=== PATIENT | male | born 1980 | race Caucasian/White ===

== ENCOUNTER 2020-06-21 18:20 | Emergency (ER) | payer OTHER, SELFPAY ==
--- NOTE | 2020-06-21 18:27 | DI.RAD.S_ITS ---
PROCEDURE: XR CHEST 1V INDICATIONS: cough and SOB TECHNIQUE: One view of the chest was acquired. COMPARISON: None. FINDINGS: Surgical changes and devices: None. Lungs and pleura: Lungs are clear. Suspect small calcified granulomas in right lung base. No pleural effusions or pneumothorax. Mediastinum: Mediastinal contours appear normal. Heart size is normal. Bones and chest wall: No suspicious bony lesions. Overlying soft tissues appear unremarkable. IMPRESSION: No acute cardiopulmonary disease. Dictated by: Marybel Sheridan M.D. on 06/21/2020 at 19:26 Approved by: Marybel Sheridan M.D. on 06/21/2020 at 19:26
[2020-06-21 18:48] VITALS: BP 130/82; PULSE 78; RESP 16; TEMP 36.9; O2SAT 97; BMI 29.3
[2020-06-21 19:01] LABS: COVID19 -Nasal RAPID Negative (Negative)
--- NOTE | 2020-06-21 19:20 | ED.GENADULT ---
HPI - General Adult General Chief complaint: Upper Respiratory Symptoms Stated complaint: covid sx, cough/nauseas/body ache/chest pain Time Seen by Provider: 06/21/20 18:25 Source: patient Mode of arrival: Ambulatory Limitations: no limitations History of Present Illness HPI narrative: Patient is a 39-year-old male who 2 weeks ago had a family members positive for strep throat. He states that for the past 24-36 hours he has had a cough and nausea and body aches and a sore throat and chest discomfort. Has not tried anything for symptoms prior to arrival. No other sick contacts except for the family member with strep throat. No rashes. Related Data Previous Rx's Medication Instructions Recorded penicillin V potassium 500 mg PO BID 10 Days #19 tab 06/21/20 Review of Systems Constitutional Constitutional: Reports body ache(s), Reports fatigue and Denies fever(s) ENT Ears, Nose, Mouth, and Throat: Reports sore throat Cardiovascular Cardiovascular: Reports chest pain Respiratory Respiratory: Reports cough Integumentary/Breasts Skin/Breast: Denies lesions and Denies rash Neurologic Neurologic: Denies behavioral changes Psychiatric Psychiatric: Denies behavioral changes Endocrine Endocrine: Reports fatigue Hematologic/Lymphatic Hematologic/Lymphatic: Denies easy bleeding and Denies easy bruising Allergic/Immunologic Allergic/Immunologic: Denies urticaria Patient History Medical History Healthy adult Social History Smoking Status: Former smoker Smoking Status: Former smoker alcohol intake frequency: 0-2 drinks per day Substance Use Type: does not use Exam Initial Vital Signs Initial Vital Signs: Vital Signs Temperature 98.5 F 06/21/20 18:48 Pulse Rate 78 06/21/20 18:48 Respiratory Rate 16 06/21/20 18:48 Blood Pressure 130/82 06/21/20 18:48 Pulse Oximetry 97 06/21/20 18:48 Const General: cooperative, comfortable and well developed Limitations: mental status not altered HENMT Head: normal to inspection and normocephalic Ears: TM's normal bilaterally Nose: external nose normal Mouth: oral mucosae normal Throat: posterior oropharynx normal Resp Effort & Inspection: normal respiratory effort Skin Lesions: no lesions Rashes: no rashes Extrem General: normal to inspection Psych Appearance: grossly normal and well kempt Course Orders Ordered: ED Orders 06/21/20 18:27 XR chest 1V Stat 06/21/20 18:35 COVID19 Stat Discontinued Medications Penicillin V Potassium (Penicillin Vk 250 Mg Tablet) 500 mg PO NOW ONE Stop: 06/21/20 19:21 Last Admin: 06/21/20 19:24 Dose: 500 mg Documented by: Vital Signs Vital signs: Vital Signs - 8 hr 06/21/20 18:48 Temperature 98.5 F Pulse Rate 78 Respiratory Rate 16 Blood Pressure 130/82 Pulse Oximetry 97 Medical Decision Making Lab Data Lab results reviewed: Yes I reviewed the patient's lab results. Labs: Lab Results 06/21/20 Range/Units 18:35 SARS-CoV-2 (PCR) Negative (Negative) Point of Care Testing Rapid Strep A Positive Point of care testing: Point of Care Testing Rapid Strep A Positive Imaging Data Chest x-ray: Radiologist's Impression: [address] [id number] ReportSigned Patient: Hernesto Rosales FMR#: [id number]: 1980Acct:[id number]/Sex: 39 / MDate of Service: 06/21/20Loc: EDAccession Number: [id number] Procedure: XR chest 1V Ordering Provider: Judd Villa D.O. PROCEDURE: XR CHEST 1V INDICATIONS: cough and SOB TECHNIQUE: One view of the chest was acquired. COMPARISON: None. FINDINGS: Surgical changes and devices: None. Lungs and pleura: Lungs are clear. Suspect small calcified granulomas in right lung base. No pleural effusions or pneumothorax. Mediastinum: Mediastinal contours appear normal. Heart size is normal. Bones and chest wall: No suspicious bony lesions. Overlying soft tissues appear unremarkable. IMPRESSION: No acute cardiopulmonary disease. Dictated by: Marybel Sheridan M.D. on 06/21/2020 at 19:26 Approved by: Marybel Sheridan M.D. on 06/21/2020 at 19:26 [facility] Narrative Medical decision making narrative: No respiratory distress, COVID negative, chest x-ray is unremarkable, does have a positive rapid strep. Discussed this with the patient. Offered IM antibiotics versus oral antibiotics. Patient opted for the oral antibiotics. Is given his 1st dose here in the ER and a prescription was sent for the remainder to the [facility] pharmacy which was his pharmacy of choice. Patient has no signs of retropharyngeal abscess or peritonsillar abscess. We did discuss return precautions and follow-up instructions. He expressed understanding and agreement. Discharge Plan Departure Patient Disposition: Home Clinical Impression: Acute streptococcal pharyngitis Instructions: DI for Strep Throat Activity Restrictions/Additional Instructions: You were given your 1st dose of antibiotics here in the emergency department. A prescription for the remainder of the course was electronically transmitted to the [facility] pharmacy. Please pick it up tomorrow and start taking it as directed. Return to the emergency department for any new or worsening symptoms Prescriptions: New penicillin V potassium 500 mg tablet 500 mg PO BID 10 Days Qty: 19 RF: 0
[2020-06-21] MEDS: PENICILLIN VK 250 MG TABLET 500 MG PO (19:24)
== END 2020-06-21 19:28 | disposition home or self-care (01) ==
PROVIDERS: Emergency Provider Emergency Medicine
DX: J02.0 Streptococcal pharyngitis (principal); R11.0 Nausea; R05 Cough; R07.9 Chest pain, unspecified; R06.02 Shortness of breath; Z20.822 Contact with and (suspected) exposure to COVID-19
CPT/HCPCS: 71045; 87635; 87880; 99283

== ENCOUNTER → 2021-10-29 13:45 | Outpatient (CLI) | payer OTHER, SELFPAY ==
--- NOTE | 2021-10-29 | DI.RAD.S_ITS ---
PROCEDURE: FL SHOULDER INJECTION MR/CT RT INDICATIONS: Pain in right shoulder COMPARISON: None. TECHNIQUE: The indications, alternatives, benefits, risks, and complications of the procedure were explained to the patient. Written informed consent was obtained and placed in the chart. The shoulder was examined fluoroscopically and a site for needle placement chosen for entry into the glenohumeral joint from an anterior approach. The skin was prepped and draped in a sterile fashion, and 1% lidocaine infiltrated from skin down to joint capsule. A spinal needle was inserted into the glenohumeral joint, and a small amount of iodinated contrast media injected to confirm intra-articular placement of the needle tip. This was followed by approximately 12 mL dilute solution of a gadolinium containing MR contrast agent. The needle was removed and a dressing was applied. The patient was given postprocedural instructions and sent to the MR suite for MR imaging. FINDINGS: A single fluoroscopic spot image demonstrates intra-articular location of injected iodinated contrast. IMPRESSION: Successful fluoroscopically guided administration of dilute Gadolinium solution into the shoulder joint for MR arthrogram. Dictated by: Migdalia Carcamo MD, PhD on 10/29/2021 at 15:32 Approved by: Migdalia Carcamo MD, PhD on 10/29/2021 at 15:32
--- NOTE | 2021-10-29 | DI.MRI.S_ITS ---
PROCEDURE: MR SHOULDER RT W CON INDICATIONS: Pain in right shoulder TECHNIQUE: After the administration of 12 mL of dilute intra-articular Gadolinium contrast, oblique coronal T1 and T2 spin echo with fat saturation, oblique sagittal T1 spin echo with and without fat saturation, oblique sagittal T2 fast spin echo with fat saturation, axial T1 spin echo with fat saturation through the shoulder. COMPARISON: None. FINDINGS: Image quality: Images are degraded by motion. Rotator cuff: Mild supraspinatus tendinopathy with interstitial tear. The infraspinatus and subscapularis tendons appear intact throughout. No rotator cuff muscle atrophy on sagittal images. Bones and bursae: No bone marrow contusions or fractures. Mild acromioclavicular joint degeneration. No os acromiale. Capsule and soft tissues: Superior labral tear. The long head of the biceps tendon demonstrates normal location and morphology. The rotator interval appears normal, without fibrosis. The coracohumeral ligament is of normal thickness. No intra-articular bodies. IMPRESSION: 1. Mild supraspinatus tendinopathy with interstitial tear. 2. Superior labral tear. Dictated by: Mo Buckley M.D. on 10/29/2021 at 15:06 Approved by: Mo Buckley M.D. on 10/29/2021 at 15:09
== END ==
PROVIDERS: Referring Provider Orthopaedic Surgery; Visit Provider Orthopaedic Surgery
DX: M75.111 Incomplete rotator cuff tear or rupture of right shoulder, not specified as traumatic (principal); S43.491A Other sprain of right shoulder joint, initial encounter; M19.011 Primary osteoarthritis, right shoulder; M25.511 Pain in right shoulder
CPT/HCPCS: 23350; 73222; 77002

== ENCOUNTER 2021-12-23 16:21 | Emergency (ER) | payer OTHER, SELFPAY ==
--- NOTE | 2021-12-23 16:38 | DI.RAD.S_ITS ---
PROCEDURE: XR FINGER LT MIN 2V INDICATIONS: swollen knuckle. unknown injury TECHNIQUE: AP hand, 2 views of the 4th finger(s) acquired. COMPARISON: None. FINDINGS: Bones: No fractures or dislocations. No suspicious bony lesions. Soft tissues: No suspicious soft tissue calcifications. IMPRESSION: Unremarkable left 4th finger radiographs Approved by: Bernard Hassan M.D. on 12/23/2021 at 16:08
[2021-12-23 16:39] VITALS: BP 137/76; PULSE 78; RESP 19; TEMP 36.3; O2SAT 96; BMI 30.4
--- NOTE | 2021-12-23 18:33 | ED.EXTPRO ---
HPI - Extremity Problem <Yanick Wells PA-C - Last Filed: 12/23/21 18:47> General Chief complaint: Extremity Problem,Nontraumatic Stated complaint: left 4th finger pain, cannot open or close Time Seen by Provider: 12/23/21 17:30 Source: patient Mode of arrival: Family Vehicle History of Present Illness HPI Narrative: This is a 41-year-old male presenting to the emergency department due to pain and decreased range of motion at the left 4th MCP joint. States began roughly a month ago with some mild aching which has worsened over the last 3 days. Denies any redness, warmth to the touch, fevers, or injury to the area. States that he is unable see his primary care provider for another month causing to come into the emergency department. Related Data Previous Rx's Medication Instructions Recorded probenecid 500 mg-colchicine 0.5 1 tab PO BID 7 days #14 tabs 12/23/21 mg tablet Allergies Allergy/AdvReac Type Severity Reaction Status Date / Time No Known Drug Allergies Allergy Verified 12/23/21 16:42 Review of Systems <Yanick Wells PA-C - Last Filed: 12/23/21 18:47> Review of Systems Narrative: GENERAL: Denies chills, fatigue, malaise, fever, sweats. HEENT: Denies sinus pain, ear pain, sore throat, difficulty swallowing, dizziness. RESPIRATORY: Denies dyspnea, cough, wheezing, hemoptysis, sputum. CARDIOVASCULAR: Denies chest pain, palpitations, orthopnea, edema, GASTROINTESTINAL: Denies nausea, vomiting, abdominal pain, diarrhea, constipation, melena. : Denies dysuria, frequency, incontinence, hematuria, urinary retention. MUSCULOSKELETAL: Left 4th finger pain in mildly decreased range of motion SKIN: Denies rash, skin lesions, or other NEUROLOGIC: Denies weakness, headache, numbness, change in speech, confusion, seizures, incoordination. PSYCHIATRIC: No concerning psychosocial issues. 12 point review of systems is negative except for those stated above Patient History <Yanick Wells PA-C - Last Filed: 12/23/21 18:47> Medical History Healthy adult Social History Smoking Status: Never smoker Smoking Status: Never smoker alcohol intake frequency: 0-2 drinks per day Substance Use Type: does not use Exam <Yanick Wells PA-C - Last Filed: 12/23/21 18:47> Narrative Exam Narrative: GENERAL: Well-developed patient, in mild distress. HEAD: Atraumatic. Normocephalic. EYES: Pupils equal round and reactive. Extraocular motions intact. No scleral icterus. No injection or drainage. ENT: Nose without bleeding, purulent drainage. Throat without erythema, tonsillar hypertrophy or exudate. Airway patent. NECK: Trachea midline. Non tender CARDIOVASCULAR: Regular rate and rhythm without murmurs, gallops, or rubs. RESPIRATORY: Clear to auscultation. Breath sounds equal bilaterally. No wheezes, rales, or rhonchi. GASTROINTESTINAL: Abdomen soft, non-tender, nondistended. EXTREMITIES: Tenderness palpation to the left 4th MCP joint with a mild amount of joint irritability. No erythema or open wounds. Distally neurovascularly intact. Decreased flexion and extension at the joint secondary to pain. BACK: Nontender without deformity or crepitance. No flank tenderness. NEURO: AOx3. SKIN: No rash or erythema of visible areas Initial Vital Signs Initial Vital Signs: Vital Signs Temperature 97.4 F L 12/23/21 16:39 Pulse Rate 78 12/23/21 16:39 Respiratory Rate 19 12/23/21 16:39 Blood Pressure 137/76 12/23/21 16:39 Pulse Oximetry 96 12/23/21 16:39 Oxygen Delivery Method 12/23/21 16:39 <Mirian Stubbs DO - Last Filed: 12/24/21 08:03> Initial Vital Signs Initial Vital Signs: Vital Signs Temperature 97.4 F L 12/23/21 16:39 Pulse Rate 78 12/23/21 16:39 Respiratory Rate 19 12/23/21 16:39 Blood Pressure 137/76 12/23/21 16:39 Pulse Oximetry 96 12/23/21 16:39 Oxygen Delivery Method 12/23/21 16:39 Course <Yanick Wells PA-C - Last Filed: 12/23/21 18:47> Orders Ordered: Discontinued Medications Ketorolac Tromethamine (Ketorolac 30 Mg/Ml Vial) 15 mg IM NOW ONE Stop: 12/23/21 18:48 Last Admin: 12/23/21 18:58 Dose: 15 mg Documented By: AP Vital Signs Vital signs: Vital Signs - 8 hr 12/23/21 16:39 Temperature 97.4 F L Pulse Rate 78 Respiratory Rate 19 Blood Pressure 137/76 Pulse Oximetry 96 Oxygen Delivery Method Room Air <Mirian Stubbs DO - Last Filed: 12/24/21 08:03> Orders Ordered: Discontinued Medications Ketorolac Tromethamine (Ketorolac 30 Mg/Ml Vial) 15 mg IM NOW ONE Stop: 12/23/21 18:48 Last Admin: 12/23/21 18:58 Dose: 15 mg Documented By: AP Vital Signs Vital signs: Vital Signs - 8 hr 12/23/21 16:39 Temperature 97.4 F L Pulse Rate 78 Respiratory Rate 19 Blood Pressure 137/76 Pulse Oximetry 96 Oxygen Delivery Method Room Air MDM - Extremity (Nontraumatic) <Yanick Wells PA-C - Last Filed: 12/23/21 18:47> Imaging Data Extremity x-ray #1: Radiologist's Impression: [place] [address] XRay Report Signed Patient: Hernesto Rosales MR#: [id number] : 1980 Acct:[id number] Age/Sex: 41 / M Date of Service: 12/23/21 Loc: ED Accession Number: [id number] ?? Procedure: XR finger LT min 2V Ordering Provider: Mirian Stubbs D.O. PROCEDURE:? XR FINGER LT MIN 2V ? INDICATIONS:? swollen knuckle. unknown injury ? TECHNIQUE:? AP hand, 2 views of the 4th finger(s) acquired.? ? COMPARISON:? None. ? FINDINGS:? ? Bones:? No fractures or dislocations.? No suspicious bony lesions.? ? Soft tissues:? No suspicious soft tissue calcifications.? ? IMPRESSION:? Unremarkable left 4th finger radiographs ? ? ? Approved by: Bernard Hassan M.D. on 12/23/2021 at 16:08? MDM Narrative Medical decision making narrative: This is a 41-year-old male presents to the emergency department due to left 4th finger pain. Finger do not appear infected in any way and low concern for tenosynovitis this time. X-ray showed no evidence of any acute fractures. Suspect mild inflammation possibly secondary to gout although unclear etiology at this time. Recommended anti-inflammatories and ice and follow up with primary care for further management. Discharge Plan Departure Patient Disposition: Home Clinical Impression: Inflammation of joint Instructions: Finger Sprain Activity Restrictions/Additional Instructions: Thank you for coming to the [facility] Emergency Department today. The x-rays did not show any evidence of joint degeneration or fractures. A not think this is any kind of infection of the joint area. I suspect this is mild inflammation of possibly the tenderness surrounding the joint. The injection given as well as the medications prescribed should help with this. Please rest your hand and fingers and apply ice to help with finger pain as well. Please follow-up with the primary care provider for further evaluation a soon as possible. I hope you feel better soon. Prescriptions: New probenecid-colchicine 500-0.5 mg tablet 1 tab PO BID 7 Days Qty: 14 0RF Visit Report Forms: Patient Portal/API <Mriian Stubbs DO - Last Filed: 12/24/21 08:03> Cosign ED Attending Neal Attestation: I was immediately available in the department for consultation. Documentation has been reviewed. I agree with assessment and plan. Pharmacy called they do not have the medication. Patient will be receiving 2 medications colchicine 0.6 mg and probenecid 500 mg
[2021-12-23] MEDS: KETOROLAC 30 MG/ML VIAL 15 MG IM (18:58)
--- NOTE | 2021-12-23 19:07 | PC.NURSE ---
exam performed by provider.
== END 2021-12-23 19:06 | disposition home or self-care (01) ==
PROVIDERS: Emergency Provider Physician Assistant Medical
DX: M19.90 Unspecified osteoarthritis, unspecified site (principal)
CPT/HCPCS: 73140; 96372; 99283; J1885

== ENCOUNTER → 2023-04-10 12:44 | Outpatient (CLI) | payer OTHER, SELFPAY ==
--- NOTE | 2023-04-10 12:52 | DI.MRI.S_ITS ---
PROCEDURE: MR ELBOW RT WO CON INDICATIONS: Pain in right elbow TECHNIQUE: Noncontrast coronal proton density fast spin echo and T2 fast spin echo with fat saturation, axial and sagittal T1 spin echo and T2 fast spin echo with fat saturation through the elbow. COMPARISON: None. FINDINGS: Image quality: Excellent. Lateral structures: The lateral ulnar collateral ligament and radial collateral ligament both appear intact. The overlying common extensor tendon demonstrates mild tendinosis. Medial structures: The ulnar collateral ligament appears intact. The overlying common flexor tendon demonstrates mild tendinosis. The ulnar nerve appears normal in size and signal within the cubital tunnel. Accessory anconeus epitrochlearis muscle is noted. Anterior structures: Mild distal biceps tendinosis at the insertion onto the radial tuberosity. The distal brachialis insertion is intact. No bicipitoradial bursal fluid. The median and radial neurovascular bundles appear normal; no focal muscle atrophy to suggest nerve impingement. Posterior structures: The conjoint triceps tendon from the long and lateral heads appears intact. The medial head of the triceps tendon also appears normal, with direct muscle insertion onto the olecranon. Mild subcutaneous edema overlying the olecranon without a significant fluid collection. Bone and cartilage: No bone marrow contusions or fractures. No osteochondral injuries. IMPRESSION: 1. Mild tendinosis of the proximal common flexor and common extensor tendons. No focal tendon tearing is seen. 2. Mild distal biceps tendinosis. 3. Accessory anconeus epitrochlearis muscle is noted with mild flattening of the ulnar nerve within the cubital tunnel without significant nerve thickening or abnormal signal intensity. Recommend correlation with neurologic exam findings to exclude ulnar neuritis. Approved by: Fabián Marcano M.D. on 04/10/2023 at 20:22
== END ==
PROVIDERS: Referring Provider Orthopaedic Surgery; Visit Provider Orthopaedic Surgery
DX: M25.521 Pain in right elbow (principal)
CPT/HCPCS: 73221

== ENCOUNTER → 2023-04-14 09:09 | Outpatient (CLI) | payer OTHER, SELFPAY ==
--- NOTE | 2023-04-14 | DI.US.S_ITS ---
PROCEDURE: US INJECT OR DRAIN JOINT INDICATIONS: RT SHOULDER PAIN -CORTICOSTEROID PROX BICEP TENDON INJECTION TECHNIQUE: The indications, alternatives, benefits, risks, and complications of the procedure were explained to the patient. Written informed consent was obtained and placed in the chart. The patient was placed in an appropriate position on the ultrasound table, and a site was chosen for percutaneous access under ultrasound guidance. Local anesthetic was administered using a 1% lidocaine solution. A hypodermic or spinal needle was then used to access the symptomatic tendon sheath. Intra-articular location of the needle tip was confirmed by real time ultrasound imaging, followed by steroid administration. The needle was then withdrawn, and a bandage applied to the puncture site. COMPARISON: [facility], [place], US GUIDED STEROID INJECTION, 08/09/2022, 14:05. [facility], [place], US GUIDED STEROID INJECTION, 03/23/2022, 9:48. FINDINGS: Joint injected: Right biceps tendon sheath. Medications injected: 4 mL of 40 mg/mL Kenalog and 0.5% Ropivacaine mixture. Complications: None. IMPRESSION: Successful ultrasound guided administration of steroid and anaesthetic solution into the right biceps tendon sheath. Dictated by: Luciano Henson M.D. on 04/14/2023 at 14:59 Approved by: Luciano Henson M.D. on 04/14/2023 at 15:00
== END ==
PROVIDERS: Referring Provider Orthopaedic Surgery; Visit Provider Orthopaedic Surgery
DX: M25.511 Pain in right shoulder (principal)
CPT/HCPCS: 20611

== ENCOUNTER 2023-05-08 08:22 | Emergency (ER) | payer OTHER, SELFPAY ==
[2023-05-08] VITALS (7 sets, daily range): BP systolic 116–147; BP diastolic 58–68; PULSE 56–81; RESP 14–17; TEMP 36.6; O2SAT 93–97; BMI 30.4
--- NOTE | 2023-05-08 08:41 | PC.NURSE ---
Pt came to ED today because he has been having what he describes as the worst headache of his life for the past few days. He describes the pain as throbbing and stabbing and an 8/10 pain. Pain is located in the occipital area of pt's head and he also reports having a stiff neck. He has been taking tylenol, ibuprofen and meloxicam but has not taken meloxicam for 48 hours. Upon examination with Dr Delgado, pt was able to turn head to left and right, ambulate with steady gait and has full ROM in all extremities. Pt speech is clear and coherent and no slurring of words noted and pt answers questions appropriately. Denies any numbness or tingling of extremities and clockmaker intact. A&ox4. at bedside. Dr Delgado in room at the time of triage.
--- NOTE | 2023-05-08 08:44 | ED_ITS ---
HPI - Headache General Chief Complaint: Headache Stated Complaint: sent by DR brooks T-5 Time Seen by Provider: 05/08/23 08:30 Mode of arrival: Ambulatory History of Present Illness HPI Narrative: Patient here for constant pressure sharp headache for the past 5 days. at bedside. Patient called primary care office and was sent here. Patient states 5 mornings ago, he awoke with this headache. Went to bed that night prior without headache. Not worse headache of life but never had headache that has persisted. Last medication taken was yesterday with Tylenol without relief. Has nausea but no vomiting. No vision changes. No limb numbness tingling or weakness. No prior history of migraine headaches. No new stressors. No new medications. No slurred speech or facial droop. Patient in no distress. No fever chills. Pain starts at the posterior neck and radiates forward to the occiput. Left greater than right discomfort headache. No primary or family history of brain aneurysms or brain tumors or migraine headaches Related Data Home Medications Medication Instructions Recorded Confirmed meloxicam 15 mg tablet 15 mg PO DAILY 05/08/23 05/08/23 Previous Rx's Medication Instructions Recorded ibuprofen 800 mg tablet 800 mg PO Q8H PRN pain #20 tabs 05/08/23 ondansetron 4 mg disintegrating 4 mg PO Q8H PRN nausea and 05/08/23 tablet vomiting #20 tabs Allergies Allergy/AdvReac Type Severity Reaction Status Date / Time No Known Drug Allergies Allergy Verified 05/08/23 08:33 Review of Systems Review of Systems Narrative: GENERAL: negative chills, fatigue, malaise, fever, sweats. HEENT: negative sinus pain, ear pain, sore throat RESPIRATORY: negative dyspnea, cough CARDIOVASCULAR: negative chest pain, palpitations GASTROINTESTINAL: Positive nausea, negative vomiting, abdominal pain : negative dysuria, frequency, hematuria MUSCULOSKELETAL: negative muscle or bony pain SKIN: negative rash, skin lesions NEUROLOGIC: negative weakness, numbness, positive headache ROS Unobtainable: All systems reviewed & are unremarkable except as noted in HPI and below Patient History Medical History Healthy adult Social History Smoking Status: Never smoker Smoking Status: Never smoker alcohol intake frequency: a few times a month Substance Use Type: does not use Exam Narrative Exam Narrative: GENERAL: in no distress, not toxic not dyspneic HEAD: Normocephalic. EYES: Pupils equal round no photophobia no papilledema ENT: Mucous membranes moist. NECK: Trachea midline. Full active range of motion of the neck with no meningeal signs. CARDIOVASCULAR: Regular rate and rhythm RESPIRATORY: Clear to auscultation. Breath sounds equal bilaterally. No wheezes, rales, or rhonchi. GASTROINTESTINAL: Abdomen soft, non-tender EXTREMITIES: No gross deformities. BACK: No flank tenderness. NEURO: AOx4.Clear speech no facial droop steady self ?gait no foot drop. ?Light touch intact to bilateral face hands. 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 ?Strong bilateral patellar reflexes. ?Steady Romberg, negative pronator drift. Fast exam is negative SKIN: Warm and dry PSYCH: Not anxious, is cooperative Initial Vital Signs Initial Vital Signs: Vital Signs Temperature 97.9 F 05/08/23 08:29 Pulse Rate 79 05/08/23 08:29 Respiratory Rate 17 05/08/23 08:29 Blood Pressure 147/68 H 05/08/23 08:29 Pulse Oximetry 96 05/08/23 08:29 Oxygen Delivery Method Room Air 05/08/23 08:29 Course Orders Ordered: Discontinued Medications Diphenhydramine HCl (Diphenhydramine 50 Mg/Ml Vial) 25 mg IV NOW ONE Stop: 05/08/23 09:33 Last Admin: 05/08/23 09:44 Dose: 25 mg Documented By: LUCINDA Sodium Chloride (Normal Saline 0.9%) 1,000 mls @ 1,000 mls/hr IV BOLUS ONE Stop: 05/08/23 09:41 Last Infusion: 05/08/23 09:58 Dose: Infused Documented By: Admin: 05/08/23 08:53 Dose: 1,000 mls/hr Documented By: LUCINDA Ketorolac Tromethamine (Ketorolac 30 Mg/Ml Vial) 15 mg IV NOW ONE Stop: 05/08/23 09:33 Last Admin: 05/08/23 09:43 Dose: 15 mg Documented By: LUCINDA Metoclopramide HCl (Metoclopramide 10 Mg/2 Ml Inj) 10 mg IV NOW ONE Stop: 05/08/23 09:33 Last Admin: 05/08/23 09:43 Dose: 10 mg Documented By: LUCINDA Prochlorperazine (Prochlorperazine 10 Mg/2 Ml Vial) 5 mg IV NOW ONE Stop: 05/08/23 08:43 Last Admin: 05/08/23 08:52 Dose: 5 mg Documented By: LUCINDA Vital Signs Vital signs: Vital Signs - 8 hr 05/08/23 08:29 05/08/23 08:45 05/08/23 08:59 Temperature 97.9 F Pulse Rate 79 69 Respiratory Rate 17 Blood Pressure 147/68 H 143/65 H Pulse Oximetry 96 93 Oxygen Delivery Method Room Air 05/08/23 08:59 05/08/23 09:00 05/08/23 09:30 Temperature Pulse Rate 81 68 58 L Respiratory Rate Blood Pressure Pulse Oximetry 94 94 93 Oxygen Delivery Method 05/08/23 10:00 Temperature Pulse Rate 56 L Respiratory Rate Blood Pressure Pulse Oximetry 95 Oxygen Delivery Method Room Air MDM - Headache Lab Data 05/08/23 08:35 05/08/23 08:35 Labs: Lab Results 05/08/23 Range/Units 08:35 WBC 7.1 (4.5-11.0) X10^3/uL RBC 5.43 (4.5-5.9) X10^6/uL Hgb 15.7 (13.5-17.5) g/dL Hct 45.1 (41-53) % MCV 83.1 (80-100) fL MCH 29.0 (26-34) PG MCHC 34.9 (30-36) % RDW 12.8 (11.6-14.8) % Plt Count 264 (150-400) X10^3/uL Neut % (Auto) 59.2 (50-75) % Lymph % (Auto) 31.5 (25-40) % Sioux % (Auto) 6.6 (3-14) % Eos % (Auto) 1.9 L (2-4) % Baso % (Auto) 0.8 (0-2) % Neut # (Auto) 4200 (9285-9289) /uL Lymph # (Auto) 2200 (7067-4991) /uL Sioux # (Auto) 500 (0-900) /uL Eos # (Auto) 100 (0-450) /uL Baso # (Auto) 100 (0-100) /uL Sodium 138 (137-145) mmol/L Potassium 4.3 (3.4-5.1) mmol/L Chloride 102 (98-107) mmol/L Carbon Dioxide 28 (22-32) mmol/L BUN 16 (9-20) mg/dL Creatinine 1.06 (0.66-1.25) mg/dL Estimated GFR > 60 (>60) mL/min BUN/Creatinine Ratio 15.1 (6-22) Glucose 107 H (70-100) mg/dL Calcium 9.9 (8.4-10.2) mg/dL Total Bilirubin 1.0 (0.2-1.3) mg/dL AST 39 (17-59) IU/L ALT 38 (<50) IU/L Alkaline Phosphatase 61 (38-126) U/L Total Protein 8.3 H (6.3-8.2) g/dL Albumin 4.8 (3.5-5.0) g/dL Globulin 3.5 (1.7-4.1) g/dL Albumin/Globulin Ratio 1.4 (1.0-2.8) Imaging Data CT scan - head: Radiologist's Impression: [place] [address] CT Scan Report Signed Patient: Hernesto Rosales MR#: [id number] : 1980 Acct:[id number] Age/Sex: 42 / M Date of Service: 05/08/23 Loc: ED Accession Number: [id number] Procedure: CT head/brain wo con Ordering Provider: Willie Delgado MD PROCEDURE: CT HEAD/BRAIN WO CON INDICATIONS: Headache TECHNIQUE: Noncontrast 4.5 mm thick angled axial sections acquired from the foramen magnum to the vertex, with coronal and sagittal reformats. For radiation dose reduction, the following was used: automated exposure control, adjustment of mA and/or kV according to patient size. COMPARISON: None. FINDINGS: Image quality: Excellent. CSF spaces: Basal cisterns are patent. No extra-axial fluid collections. Ventricles are normal in size and shape. Brain: No midline shift. No intracranial masses or hemorrhage. Burns-white matter interface is normal. Skull and face: Calvarium and visualized facial bones are intact, without suspicious lesions. Sinuses: There is a mucous retention cyst partially seen within the right maxillary sinus. Visualized sinuses and mastoids are otherwise clear. IMPRESSION: Normal noncontrast head CT. No intracranial hemorrhage is seen. Dictated by: Ish Mcfadden M.D. on 05/08/2023 at 9:33 Approved by: Ish Mcfadden M.D. on 05/08/2023 at 9:34 [facility] Narrative Medical decision making narrative: Patient here for constant pressure sharp headache for the past 5 days. at bedside. Patient called primary care office and was sent here. Patient states 5 mornings ago, he awoke with this headache. Went to bed that night prior without headache. Not worse headache of life but never had headache that has persisted. Last medication taken was yesterday with Tylenol without relief. Has nausea but no vomiting. No vision changes. No limb numbness tingling or weakness. No prior history of migraine headaches. No new stressors. No new medications. No slurred speech or facial droop. Patient in no distress. No fever chills. Pain starts at the posterior neck and radiates forward to the occiput. Left greater than right discomfort headache. No primary or family history of brain aneurysms or brain tumors or migraine headaches After history and exam CT head CBC CMP Compazine normal saline [facility] CC: Headache Complicating co-morbidities: None Data collected from: Patient and Medical records reviewed: No recent visit for this complaint Differential considered: Includes but not limited to subarachnoid bleed intracranial bleed migraine headache brain tumor aneurysm Exam documented above, pertinent findings include: No neuro deficits on exam, no meningeal sign Lab Test results independently reviewed as above. Pertinent findings: WBC 7.1 hemoglobin 15.7 sodium 138 potassium 4.3 Imaging studies independently reviewed: CT head no acute finding Treatments: Compazine normal saline Re-evaluations: 10:32 a.m.. Patient states headache is 5/10. It was 8/10 when he arrived. He feels much much much better he states. Much better when he came here. He is pleased with the medications given. 11:00 a.m.. Patient continues feel much better. 4/10 headache. I did review results with him and . He does not want to stay any further for any more treatment or imaging such as angiogram of head and neck. He says he feels much better. He is received conservative treatment for his headache. Return precautions reviewed with him. He desires discharge home Discussion: Appropriate for discharge home exam and laboratory studies and imaging are reassuring. Patient feeling much better after conservative treatment medications. at bedside. He does not want stay for further observation or treatment or angiogram head and neck. He is trending in a positive direction with decreased headache with conservative medications. Return precautions reviewed with him. Work note provided. Prescriptions provided. He desires discharge home Diagnosis: Headache See your family doctor this week for re-evaluation. Keep well hydrated. Prescription medication has been sent to your pharmacy to continued today. Your laboratory studies and CT scan imaging are reassuring. You can see your family doctor for evaluation for possible development of migraine headaches. Return if worse if any questions or concerns Discharge Plan Departure Patient Disposition: Home Clinical Impression: Headache Qualifiers: Headache type: unspecified Headache chronicity pattern: acute headache I ntractability: not intractable Qualified Code(s): R51.9 - Headache, unspecified Instructions: DI for Headache Activity Restrictions/Additional Instructions: See your family doctor this week for re-evaluation. Keep well hydrated. Prescription medication has been sent to your pharmacy to continued today. Your laboratory studies and CT scan imaging are reassuring. You can see your family doctor for evaluation for possible development of migraine headaches. Return if worse if any questions or concerns Prescriptions: New ibuprofen 800 mg tablet 800 mg PO Q8H PRN (Reason: pain) Qty: 20 0RF ondansetron 4 mg tablet,disintegrating 4 mg PO Q8H PRN (Reason: nausea and vomiting) Qty: 20 0RF No Action meloxicam 15 mg tablet 15 mg PO DAILY Referrals: ProviderReg [Primary Care Provider] - Stand Alone Forms: Patient Portal/API, Work Release Note
[2023-05-08] MEDS: PROCHLORPERAZINE 10 MG/2 ML VIAL 5 MG IV (08:52)
[2023-05-08] MEDS: SODIUM CHLORIDE 0.9% 1,000 ML 1000 ML IV (08:53)
[2023-05-08 09:01] LABS: Add Manual Diff / Slide Review NO; Basophils Absolute Auto 100 /uL (0-100); Basophils Percent Auto 0.8 % (0-2); Eosinophils Absolute Auto 100 /uL (0-450); Eosinophils Percent Auto 1.9 % (2-4); Hematocrit 45.1 % (41-53); Hemoglobin 15.7 g/dL (13.5-17.5); Lymphocytes Absolute Auto 2200 /uL (1100-4500); Lymphocytes Percent Auto 31.5 % (25-40); Mean Corpuscular HGB Conc 34.9 % (30-36); Mean Corpuscular Volume 83.1 fL (80-100); Monocytes Absolute Auto 500 /uL (0-900); Monocytes Percent Auto 6.6 % (3-14); Neutrophils Absolute Auto 4200 /uL (1500-7000); Neutrophils Percent Auto 59.2 % (50-75); Platelet Count 264 X10^3/uL (150-400); Red Blood Cell Count 5.43 X10^6/uL (4.5-5.9); Red Cell Distribution Width 12.8 % (11.6-14.8); White Blood Cell Count 7.1 X10^3/uL (4.5-11.0)
[2023-05-08 09:05] LABS: Alanine Aminotransferase 38 IU/L (<50); Albumin 4.8 g/dL (3.5-5.0); Albumin Globulin Ratio 1.4 (1.0-2.8); Alkaline Phosphatase 61 U/L (38-126); Aspartate Aminotransferase 39 IU/L (17-59); BUN Creatinine Ratio 15.1 (6-22); Blood Urea Nitrogen 16 mg/dL (9-20); Calcium 9.9 mg/dL (8.4-10.2); Carbon Dioxide 28 mmol/L (22-32); Chloride 102 mmol/L (98-107); Estimated Glomerular Filt Rate > 60 mL/min (>60); Globulin 3.5 g/dL (1.7-4.1); Glucose 107 mg/dL (70-100); HEMOLYSIS 16 (0-50); Potassium 4.3 mmol/L (3.4-5.1); Sodium 138 mmol/L (137-145); Total Protein 8.3 g/dL (6.3-8.2)
[2023-05-08] MEDS: METOCLOPRAMIDE 10 MG/2 ML INJ IV (09:43)
[2023-05-08] MEDS: KETOROLAC 30 MG/ML VIAL 15 MG IV (09:43)
[2023-05-08] MEDS: diphenhydrAMINE 50 MG/ML VIAL 25 MG IV (09:44)
== END 2023-05-08 11:09 | disposition home or self-care (01) ==
PROVIDERS: Emergency Provider Emergency Medicine
DX: R51.9 Headache, unspecified (principal)
CPT/HCPCS: 36415; 70450; 80053; 85025; 96374; 96375; 99284; J0780; J1200; J1885; J2765

== ENCOUNTER 2023-10-04 10:52 | Emergency (ER) | payer OTHER, SELFPAY ==
[2023-10-04 10:56] VITALS: BP 119/74; PULSE 93; RESP 14; TEMP 36.1; O2SAT 96; BMI 31.9
--- NOTE | 2023-10-04 11:22 | ED_ITS ---
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 Patient attempted to get an appointment with his family doctor at the [facility], but was told to come to the emergency department as no appointments would be available. History of GERD and takes his omeprazole daily. Related Data Home Medications Medication Instructions Recorded Confirmed meloxicam 15 mg tablet 15 mg PO DAILY 05/08/23 05/08/23 Previous Rx's Medication Instructions Recorded ibuprofen 800 mg tablet 800 mg PO Q8H PRN pain #20 tabs 05/08/23 ondansetron 4 mg disintegrating 4 mg PO Q8H PRN nausea and 05/08/23 tablet vomiting #20 tabs Allergies Allergy/AdvReac Type Severity Reaction Status Date / Time No Known Drug Allergies Allergy Verified 10/04/23 10:56 Review of Systems <SUSHIL Spencer - Last Filed: 10/04/23 12:45> Review of Systems Narrative: Narrative: See HPI. GENERAL: Denies chills, fatigue, fever, sweats. HEENT: Denies sinus pain, ear pain, difficulty swallowing, dizziness. Endorses sore throat. RESPIRATORY: Denies dyspnea, cough, wheezing, sputum. CARDIOVASCULAR: Denies chest pain, palpitations, edema. GASTROINTESTINAL: Denies nausea, vomiting, abdominal pain, diarrhea, constipation. MSK: Denies weakness, joint pain, or bony pain. SKIN: Denies rash, skin lesions, or pruritis. NEUROLOGIC: Denies weakness, dizziness, headache, numbness, confusion. Patient History <SUSHIL Spencer - Last Filed: 10/04/23 12:45> Medical History Healthy adult Social History Smoking Status: Never smoker Smoking Status: Never smoker alcohol intake frequency: holidays/special occasions only Substance Use Type: does not use Exam <SUSHIL Spencer - Last Filed: 10/04/23 12:45> Narrative Exam Narrative: Exam Narrative: GENERAL: This is a well-nourished, well-developed patient, in no acute distress. HEAD: Atraumatic. Normocephalic. EYES: Pupils equal round and reactive.No scleral icterus, injection or drainage. ENT: Nose without bleeding, purulent drainage. Throat with erythema, tonsillar hypertrophy (R-2+, L-1+) and exudate. Uvula midline. Airway patent. TMs and canals clear, with effusion. No sinus tenderness. NECK: Trachea midline. No JVD or lymphadenopathy. Nontender. CARDIOVASCULAR: Regular rate and rhythm without murmurs, peripheral pulses intact, cap refill <2 sec. RESPIRATORY: Breath sounds equal and clear bilaterally. No wheezes, rales, or rhonchi. No cough. No increased respiratory effort. No accessory muscle use. MSK: Moves all extremities. Normal range of motion, no clubbing or edema. Neurovascularly intact. NEURO: A&O x 3. SKIN: Warm, dry, no rashes or lesions noted. Initial Vital Signs Initial Vital Signs: Vital Signs Temperature 97.0 F L 10/04/23 10:56 Pulse Rate 93 H 10/04/23 10:56 Respiratory Rate 14 10/04/23 10:56 Blood Pressure 119/74 10/04/23 10:56 Pulse Oximetry 96 10/04/23 10:56 Oxygen Delivery Method Room Air 10/04/23 10:56 Reviewed <Judd Villa DO - Last Filed: 10/04/23 14:51> Initial Vital Signs Initial Vital Signs: Vital Signs Temperature 97.0 F L 10/04/23 10:56 Pulse Rate 93 H 10/04/23 10:56 Respiratory Rate 14 10/04/23 10:56 Blood Pressure 119/74 10/04/23 10:56 Pulse Oximetry 96 10/04/23 10:56 Oxygen Delivery Method Room Air 10/04/23 10:56 Course <SUSHIL Spencer - Last Filed: 10/04/23 12:45> Orders Ordered: ED Orders 10/04/23 11:15 Covid-19 + FLU A/B + RSV - PCR Stat Throat Culture Stat 10/04/23 11:28 Strep Grp A by PCR Rapid Stat 10/04/23 11:56 Monotest Stat Discontinued Medications Dexamethasone (Dexamethasone 10 Mg/Ml Vial) 10 mg PO NOW ONE Stop: 10/04/23 12:28 Last Admin: 10/04/23 12:46 Dose: 10 mg Documented By: RB Vital Signs Vital signs: Vital Signs - 8 hr 10/04/23 10:56 Temperature 97.0 F L Pulse Rate 93 H Respiratory Rate 14 Blood Pressure 119/74 Pulse Oximetry 96 Oxygen Delivery Method Room Air <Judd Villa DO - Last Filed: 10/04/23 14:51> Orders Ordered: ED Orders 10/04/23 11:15 Covid-19 + FLU A/B + RSV - PCR Stat Throat Culture Stat 10/04/23 11:28 Strep Grp A by PCR Rapid Stat 10/04/23 11:56 Monotest Stat Discontinued Medications Dexamethasone (Dexamethasone 10 Mg/Ml Vial) 10 mg PO NOW ONE Stop: 10/04/23 12:28 Last Admin: 10/04/23 12:46 Dose: 10 mg Documented By: RB Vital Signs Vital signs: Vital Signs - 8 hr 10/04/23 10:56 Temperature 97.0 F L Pulse Rate 93 H Respiratory Rate 14 Blood Pressure 119/74 Pulse Oximetry 96 Oxygen Delivery Method Room Air MDM - URI/Sore Throat <SUSHIL Spencer - Last Filed: 10/04/23 12:45> Differential Diagnosis Differential diagnosis: Likely upper respiratory infection, sinusitis, viral infection, influenza and pharyngitis Lab Data Labs: Lab Results 10/04/23 10/04/23 10/04/23 Range/Units 11:15 11:28 11:56 SARS-CoV-2 (PCR) Negative (Negative) Monoscreen Negative (Negative) Influenza A (RT-PCR) Flu a negative (NEGATIVE) Influenza B (RT-PCR) Flu b negative (NEGATIVE) RSV (PCR) Negative (Negative) Group A Strep (PCR) Negative (Negative) MDM Narrative Medical decision making narrative: 43-year-old male with sore throat x3 weeks. Assessment was encouraging and no red flag symptoms noted. Rapid strep was negative. [place] test was negative. Viral panel was negative. Suspect this may be viral in nature, but will send off a throat swab for culture, contact patient with the results and treat if indicated. Due to severity of pain and swelling tonsils, administered a single dose of Decadron. Discussed supportive care measures with patient to include rest, increased oral hydration, gargling with warm salt water, cool compress to the throat, etc.. Patient will follow up with family doctor as needed. Patient verbalized understanding and was agreeable with course of action. <Judd Villa, DO - Last Filed: 10/04/23 14:51> Lab Data Labs: Lab Results 10/04/23 10/04/23 10/04/23 Range/Units 11:15 11:28 11:56 SARS-CoV-2 (PCR) Negative (Negative) Monoscreen Negative (Negative) Influenza A (RT-PCR) Flu a negative (NEGATIVE) Influenza B (RT-PCR) Flu b negative (NEGATIVE) RSV (PCR) Negative (Negative) Group A Strep (PCR) Negative (Negative) Discharge Plan Departure Patient Disposition: Home Clinical Impression: Pharyngitis Qualifiers: Pharyngitis/tonsillitis etiology: unspecified etiology Qualified Code(s): J02.9 - Acute pharyngitis, unspecified Instructions: DI for Viral Pharyngitis Activity Restrictions/Additional Instructions: *You have been diagnosed with a sore throat. It was a pleasure meeting you today. My assessment was encouraging and your labs were all normal. Your tests for mononucleosis, COVID, influenza A&B, RSV and strep A were all negative. We will send out a throat sample for culture, contact you with the results and treat if indicated. We gave you a dose Decadron which should help with the tonsillar swelling and discomfort of your throat. As we discussed, good supportive care includes drinking plenty of fluids throughout the day, cool compresses to the throat, gargling with warm salt water and [id number] medications as needed for comfort. Please follow-up with your family doctor as needed but feel free to return to the emergency department if needed. *What to do: *Please continue to take your regular medications as directed. [ ] New medication prescriptions sent to your pharmacy: [ ] [ ] New medication written as a paper prescription [ x] No new medications given *Please follow up with your primary care provider in 2-3 days, call for an appointment. Let them know you were seen in the Emergency Department and that we ask that you be seen in follow up. We will electronically transmit a record of today's note if your PCP is in our system *If you do not have a primary care provider please contact the [facility] Resource line at [phone]. They will ask some questions about your medical history and help get you set up with a doctor in the community. ? Return to ER if you should have any new, worsening or concerning symptoms, such as worsening pain, severe headache, confusion, chest pain, difficulty breathing, fever greater than 101 F, shaking chills, persistent vomiting to the point that you cannot drink fluids, or other new or worsening symptoms. Prescriptions: No Action meloxicam 15 mg tablet 15 mg PO DAILY ibuprofen 800 mg tablet 800 mg PO Q8H PRN (Reason: pain) Qty: 20 0RF ondansetron 4 mg tablet,disintegrating 4 mg PO Q8H PRN (Reason: nausea and vomiting) Qty: 20 0RF Referrals: ProviderReg [Primary Care Provider] - Stand Alone Forms: Patient Portal/API ED Sign-out <Judd Villa, DO - Last Filed: 10/04/23 14:51> Cosign ED Attending Cosignature Attestation: Dr Villa Co-Sign Statement: I was available for consultation during this patient's emergency department visit. This chart is signed by myself for administrative purposes only. I did not have direct contact with this patient during this visit. They were seen independently by the APC.
[2023-10-04 11:44] LABS: Strep Grp A by PCR Rapid Negative (Negative)
[2023-10-04 12:04] LABS: Monotest Negative (Negative)
[2023-10-04 12:18] LABS: COVID-19 CEPHEID 4-PLEX PCR Negative (Negative); Influenza A - CEPHEID Flu A NEGATIVE (NEGATIVE); Influenza B - CEPHEID Flu B NEGATIVE (NEGATIVE); Respiratory Syncytial Virus Negative (Negative)
[2023-10-04] MEDS: DEXAMETHASONE 10 MG/ML VIAL PO (12:46)
== END 2023-10-04 12:52 | disposition home or self-care (01) ==
PROVIDERS: Emergency Medicine; Emergency Provider Registered Nurse
DX: J02.9 Acute pharyngitis, unspecified (principal); Z20.822 Contact with and (suspected) exposure to COVID-19
CPT/HCPCS: 0241U; 36415; 86318; 87070; 87077; 87147; 87651; 99283; J1100

== ENCOUNTER 2024-04-13 20:33 | Emergency (ER) | payer OTHER, SELFPAY ==
[2024-04-13 20:40] VITALS: BP 123/79; PULSE 102; RESP 19; TEMP 37.1; O2SAT 97; BMI 30.4
[2024-04-13 21:36] LABS: Add Manual Diff / Slide Review NO; Basophils Absolute Auto 100 /uL (0-100); Basophils Percent Auto 0.8 % (0-2); Eosinophils Absolute Auto 300 /uL (0-450); Eosinophils Percent Auto 1.8 % (2-4); Hematocrit 45.7 % (41-53); Hemoglobin 15.7 g/dL (13.5-17.5); Lymphocytes Absolute Auto 3000 /uL (1100-4500); Lymphocytes Percent Auto 20.2 % (25-40); Mean Corpuscular HGB Conc 34.4 % (30-36); Mean Corpuscular Hemoglobin 28.4 PG (26-34); Mean Corpuscular Volume 82.7 fL (80-100); Monocytes Absolute Auto 1500 /uL (0-900); Monocytes Percent Auto 10.3 % (3-14); Neutrophils Absolute Auto 9900 /uL (1500-7000); Neutrophils Percent Auto 66.9 % (50-75); Platelet Count 353 X10^3/uL (150-400); Red Blood Cell Count 5.52 X10^6/uL (4.5-5.9); Red Cell Distribution Width 13.9 % (11.6-14.8); White Blood Cell Count 14.8 X10^3/uL (4.5-11.0)
[2024-04-13 21:42] LABS: Alanine Aminotransferase 33 IU/L (<50); Albumin 4.5 g/dL (3.5-5.0); Albumin Globulin Ratio 1.3 (1.0-2.8); Alkaline Phosphatase 82 U/L (38-126); Aspartate Aminotransferase 36 IU/L (17-59); BUN Creatinine Ratio 17.8 (6-22); Bilirubin Total 0.8 mg/dL (0.2-1.3); Blood Urea Nitrogen 18 mg/dL (9-20); Calcium 9.2 mg/dL (8.4-10.2); Carbon Dioxide 22 mmol/L (22-32); Chloride 103 mmol/L (98-107); Estimated Glomerular Filt Rate > 60 mL/min (>60); Globulin 3.6 g/dL (1.7-4.1); Glucose 122 mg/dL (70-100); HEMOLYSIS 18 (0-50); Lipase 105 U/L (23-300); Potassium 4.1 mmol/L (3.4-5.1); Sodium 134 mmol/L (137-145); Total Protein 8.1 g/dL (6.3-8.2)
--- NOTE | 2024-04-13 22:05 | DI.CT.S_ITS ---
PROCEDURE: CT ABDOMEN PELVIS W CON INDICATIONS: abd pain, hx diverticulitis TECHNIQUE: After the administration of intravenous contrast, axial sections acquired from the lung bases to the pubic symphysis. Coronal and sagittal reformats were performed. For radiation dose reduction, the following was used: automated exposure control, adjustment of mA and/or kV according to patient size. COMPARISON: None. FINDINGS: Image quality: Diagnostic. Lower Chest: No significant findings. ABDOMEN: Liver: No solid mass. Gallbladder: No radiopaque gallstones or wall thickening. Biliary ducts: No biliary dilation. Pancreas: No ductal dilation. Spleen: Size is within normal limits. Adrenal Glands: No adrenal nodules. Kidneys and Ureters: No hydronephrosis. No solid mass. No complex renal cystic lesion which requires follow up. Stomach and Bowel: Prominent thickening of the left colon predominantly the sigmoid, with pericolonic inflammatory change. Diverticula are present. No discrete abscess. Peritoneum: No abnormal intraperitoneal fluid. No free air. Ventral Wall: Trace fat containing ventral hernia. Abdominal Nodes: No retroperitoneal or mesenteric adenopathy by size criteria. Vessels: Aorta and inferior vena cava are normal in size. PELVIS: Pelvic Organs: Unremarkable. Bladder: No bladder wall thickening, accounting for underdistention. Pelvic Nodes: No enlarged lymph nodes. Miscellaneous: No inguinal hernias are seen. Bones: No aggressive osseous abnormality. IMPRESSION: Sigmoid colitis secondary to diverticulitis without distinct abscess. Dictated by: Jacki Schwab M.D. on 04/13/2024 at 22:34 Approved by: Jacki Schwab M.D. on 04/13/2024 at 22:36
[2024-04-13] MEDS: MORPHINE 4 MG/ML INJ IV (23:01)
[2024-04-13] MEDS: metroNIDAZOLE 500 MG TABLET PO (23:01)
[2024-04-13 23:02] VITALS: PULSE 87; O2SAT 96
[2024-04-13 23:03] VITALS: BP 124/77; PULSE 86; O2SAT 96
--- NOTE | 2024-04-13 23:08 | ED.ABDPAIN ---
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 Now has left lower quadrant similar pain since earlier this morning. No nausea or vomiting. No black or red stools. No hard stools. No injury or trauma. He does not take blood thinner medications. He has not been on any recent antibiotics in the last week or two. He does not have painful urination or frequency of urination. He denies cough or shortness of breath. No upper respiratory symptoms. Related Data Home Medications Medication Instructions Recorded Confirmed meloxicam 15 mg tablet 15 mg PO DAILY 05/08/23 05/08/23 Previous Rx's Medication Instructions Recorded ibuprofen 800 mg tablet 800 mg PO Q8H PRN pain #20 tabs 05/08/23 ondansetron 4 mg disintegrating 4 mg PO Q8H PRN nausea and 05/08/23 tablet vomiting #20 tabs ciprofloxacin HCl 500 mg tablet 500 mg PO BID 10 days #20 tabs 04/13/24 hydrocodone 5 mg-acetaminophen 325 1 tab PO Q6H PRN pain #14 tabs 04/13/24 mg tablet metronidazole 500 mg tablet 500 mg PO TID #30 tabs 04/13/24 Allergies Allergy/AdvReac Type Severity Reaction Status Date / Time No Known Drug Allergies Allergy Verified 10/04/23 10:56 Review of Systems Review of Systems Narrative: see HPI Patient History Medical History Healthy adult Social History Smoking Status: Never smoker Smoking Status: Never smoker alcohol intake frequency: holidays/special occasions only Substance Use Type: does not use Exam Narrative Exam Narrative: GENERAL: Well-developed patient, in mild distress. HEAD: Atraumatic. Normocephalic. EYES: Pupils equal round and reactive. Extraocular motions intact. No scleral icterus. No injection or drainage. ENT: Nose without bleeding, purulent drainage. Throat without erythema, tonsillar hypertrophy or exudate. Airway patent. NECK: Trachea midline. Non tender CARDIOVASCULAR: Regular rate and rhythm without murmurs, gallops, or rubs. RESPIRATORY: Clear to auscultation. Breath sounds equal bilaterally. No wheezes, rales, or rhonchi. GASTROINTESTINAL: Tenderness left lower quadrant, no guarding or rebound or distention. Normal bowel tones. Nondistended. EXTREMITIES: No edema or joint tenderness. BACK: Nontender without deformity or crepitance. No flank tenderness. NEURO: AOx3. Motor functions grossly nonfocal SKIN: No rash or erythema of visible areas Initial Vital Signs Initial Vital Signs: Vital Signs Temperature 98.7 F 04/13/24 20:40 Pulse Rate 102 H 04/13/24 20:40 Respiratory Rate 19 04/13/24 20:40 Blood Pressure 123/79 04/13/24 20:40 Pulse Oximetry 97 04/13/24 20:40 Oxygen Delivery Method Room Air 04/13/24 20:40 Course Orders Ordered: Discontinued Medications Hydrocodone Bitart/Acetaminophen (Hydrocodone/Acet 5/325 Prepack) 1 bottle MISC DIRECTED ONE Stop: 04/13/24 23:20 Last Admin: 04/13/24 23:26 Dose: 1 bottle Documented By: ROX Ciprofloxacin (Ciprofloxacin 250 Mg Tablet) 500 mg PO NOW ONE Stop: 04/13/24 23:21 Last Admin: 04/13/24 23:26 Dose: 500 mg Documented By: ROX Ciprofloxacin (Cipro) 400 mg in 200 mls @ 200 mls/hr IV NOW ONE Stop: 04/13/24 23:48 Last Admin: 04/13/24 23:22 Dose: Not Given Documented By: ROX Metronidazole (Metronidazole 500 Mg Tablet) 500 mg PO NOW ONE Stop: 04/13/24 22:50 Last Admin: 04/13/24 23:01 Dose: 500 mg Documented By: TAMMI Morphine Sulfate (Morphine 4 Mg/Ml Inj) 4 mg IV NOW ONE Stop: 04/13/24 22:51 Last Admin: 04/13/24 23:01 Dose: 4 mg Documented By: TAMMI Ondansetron HCl (Ondansetron 4 Mg/2 Ml Inj) 4 mg IV NOW PRN PRN Reason: Nausea And Vomiting Ondansetron HCl (Ondansetron 4 Mg Odt) 4 mg PO NOW PRN PRN Reason: Nausea And Vomiting Vital Signs Vital signs: Vital Signs - 8 hr 04/13/24 20:40 Temperature 98.7 F Pulse Rate 102 H Respiratory Rate 19 Blood Pressure 123/79 Pulse Oximetry 97 Oxygen Delivery Method Room Air MDM - Abdominal Pain Lab Data Attestation: I reviewed the patient's lab results. Lab results narrative: White blood cell count 37172 elevated, hemoglobin 15.7, platelets adequate. Basic metabolic panel unremarkable. Liver functions unremarkable. Lipase normal 04/13/24 21:24 04/13/24 21:24 Labs: Lab Results 04/13/24 Range/Units 21:24 WBC 14.8 H (4.5-11.0) X10^3/uL RBC 5.52 (4.5-5.9) X10^6/uL Hgb 15.7 (13.5-17.5) g/dL Hct 45.7 (41-53) % MCV 82.7 (80-100) fL MCH 28.4 (26-34) PG MCHC 34.4 (30-36) % RDW 13.9 (11.6-14.8) % Plt Count 353 (150-400) X10^3/uL Neut % (Auto) 66.9 (50-75) % Lymph % (Auto) 20.2 L (25-40) % [place] % (Auto) 10.3 (3-14) % Eos % (Auto) 1.8 L (2-4) % Baso % (Auto) 0.8 (0-2) % Neut # (Auto) 9900 H (6395-0653) /uL Lymph # (Auto) 3000 (3592-5130) /uL [place] # (Auto) 1500 H (0-900) /uL Eos # (Auto) 300 (0-450) /uL Baso # (Auto) 100 (0-100) /uL Sodium 134 L (137-145) mmol/L Potassium 4.1 (3.4-5.1) mmol/L Chloride 103 (98-107) mmol/L Carbon Dioxide 22 (22-32) mmol/L BUN 18 (9-20) mg/dL Creatinine 1.01 (0.66-1.25) mg/dL Estimated GFR > 60 (>60) mL/min BUN/Creatinine Ratio 17.8 (6-22) Glucose 122 H (70-100) mg/dL Calcium 9.2 (8.4-10.2) mg/dL Total Bilirubin 0.8 (0.2-1.3) mg/dL AST 36 (17-59) IU/L ALT 33 (<50) IU/L Alkaline Phosphatase 82 (38-126) U/L Total Protein 8.1 (6.3-8.2) g/dL Albumin 4.5 (3.5-5.0) g/dL Globulin 3.6 (1.7-4.1) g/dL Albumin/Globulin Ratio 1.3 (1.0-2.8) Lipase 105 (23-300) U/L Imaging Data CT scan - abdomen/pelvis: Radiologist's Impression: [address] [address] [address] Scan Report Signed Patient: Hernesto Rosales MR#: [id number] : 1980 Acct:[id number] Age/Sex: 43 / M Date of Service: 04/13/24 Loc: ED Accession Number: [id number] Procedure: CT abdomen pelvis w con Ordering Provider: Kang Real MD PROCEDURE: CT ABDOMEN PELVIS W CON INDICATIONS: abd pain, hx diverticulitis TECHNIQUE: After the administration of intravenous contrast, axial sections acquired from the lung bases to the pubic symphysis. Coronal and sagittal reformats were performed. For radiation dose reduction, the following was used: automated exposure control, adjustment of mA and/or kV according to patient size. COMPARISON: None. FINDINGS: Image quality: Diagnostic. Lower Chest: No significant findings. ABDOMEN: Liver: No solid mass. Gallbladder: No radiopaque gallstones or wall thickening. Biliary ducts: No biliary dilation. Pancreas: No ductal dilation. Spleen: Size is within normal limits. Adrenal Glands: No adrenal nodules. Kidneys and Ureters: No hydronephrosis. No solid mass. No complex renal cystic lesion which requires follow up. Stomach and Bowel: Prominent thickening of the left colon predominantly the sigmoid, with pericolonic inflammatory change. Diverticula are present. No discrete abscess. Peritoneum: No abnormal intraperitoneal fluid. No free air. Ventral Wall: Trace fat containing ventral hernia. Abdominal Nodes: No retroperitoneal or mesenteric adenopathy by size criteria. Vessels: Aorta and inferior vena cava are normal in size. PELVIS: Pelvic Organs: Unremarkable. Bladder: No bladder wall thickening, accounting for underdistention. Pelvic Nodes: No enlarged lymph nodes. Miscellaneous: No inguinal hernias are seen. Bones: No aggressive osseous abnormality. IMPRESSION: Sigmoid colitis secondary to diverticulitis without distinct abscess. Dictated by: Jacki Schwab M.D. on 04/13/2024 at 22:34 Approved by: Jacki Schwab M.D. on 04/13/2024 at 22:36 [facility] Narrative Medical decision making narrative: 43-year-old male with history of diverticular microabscess December 2023 treated in [place] while in service, inpatient stay for a few days, resolve with antibiotic course. We will be awaiting follow up colonoscopy at some point. Now with left lower quadrant some area of discomfort since this morning. Tenderness on examination. Afebrile. Normal vitals. Screening labs show leukocytosis 14,000 noted. Renal function adequate. CT abdomen and pelvis ordered. CT shows sigmoid colitis, no mention of perforation or abscess, no obstructive changes. See radiology report. Initially we ordered IV ciprofloxacin, he would rather have oral treatment and go home. Offered IV abx, prefers oral, would like to be dishcarged soon. Oral ciprofloxacin dose, oral Flagyl dose, first doses now. Prescription sent to his pharmacy for 10 day course of antibiotics. Advised not to drink alcohol while taking Flagyl, can induce vomiting. Encouraged to follow up with General surgery, as he has recurrent diverticular sigmoid problems, to see if sigmoidectomy might be necessary in the future, or at least screening colonoscopy in the future. Pain medication given parenterally, improved pain control. Oral pain medications to use if needed. Stable, improved, further antibiotic treatment as an outpatient for now. Discharged home with family. Return precautions discussed. Discharge Plan Departure Patient Disposition: Home Clinical Impression: Diverticulitis Instructions: DI for Diverticulitis Activity Restrictions/Additional Instructions: Left lower quadrant abdominal discomfort. History of diverticular microabscess December 2023 treated while in service in [place], inpatient then oral antibiotic outpatient, symptoms resolved. Now with recurrent symptoms since early this morning left lower quadrant, some tenderness on exam. No fever on triage, unremarkable vitals. Elevated white blood cell count noted. CT abdomen and pelvis was performed, showing diverticulitis changes in the sigmoid colon, with no description of perforation or abscess or obstructive complicated changes at this time. We talked about IV antibiotics, oral antibiotics preferred. Oral dose of ciprofloxacin and oral dose of metronidazole antibiotics given in the emergency department, prescription sent for 10 day course of both antibiotics to your pharmacy. Please avoid alcohol while taking metronidazole/Flagyl as this can cause interaction with alcohol causing vomiting. Take pain medications as needed. Drink plenty of fluids. Consider increased fiber in your diet in general to help with diverticular symptoms. Consider surgery follow up for possible endoscopy. Also if there is recurrent sigmoid area with problem sometimes elective sigmoidectomy surgery is considered. Follow up with Dr. Flynn of surgery on-call, his contact information was provided, call his office early next week. Take medications as directed. Follow up with General surgery. Return earlier to this/nearest emergency department for any change worsening symptoms or any concerns prior Prescriptions: New ciprofloxacin HCl 500 mg tablet 500 mg PO BID 10 Days Qty: 20 0RF metronidazole 500 mg tablet 500 mg PO TID Qty: 30 0RF hydrocodone-acetaminophen 5-325 mg tablet 1 tab PO Q6H PRN (Reason: pain) Qty: 14 0RF No Action meloxicam 15 mg tablet 15 mg PO DAILY ibuprofen 800 mg tablet 800 mg PO Q8H PRN (Reason: pain) Qty: 20 0RF ondansetron 4 mg tablet,disintegrating 4 mg PO Q8H PRN (Reason: nausea and vomiting) Qty: 20 0RF Referrals: Roge Flynn MD [Physician] - Provider,Reg SRIVASTAVA [Primary Care Provider] - Stand Alone Forms: Patient Portal/API
[2024-04-13] MEDS: HYDROCODONE/ACET 5/325 PREPACK 1 BOTTLE MISC (23:26)
[2024-04-13] MEDS: CIPROFLOXACIN 250 MG TABLET 500 MG PO (23:26)
[2024-04-13 23:30] VITALS: BP 116/76; PULSE 84; O2SAT 95
== END 2024-04-13 23:50 | disposition home or self-care (01) ==
PROVIDERS: Emergency Provider Emergency Medicine
DX: K57.92 Diverticulitis of intestine, part unspecified, without perforation or abscess without bleeding (principal); R79.89 Other specified abnormal findings of blood chemistry
CPT/HCPCS: 36415; 74177; 80053; 83690; 85025; 96374; 99284; J2270; Q9967

== ENCOUNTER → 2024-05-13 07:24 | Outpatient (CLI) | payer OTHER, SELFPAY ==
--- NOTE | 2024-05-13 07:26 | DI.CT.S_ITS ---
PROCEDURE: CT ABDOMEN PELVIS W CON INDICATIONS: Diverticulitis TECHNIQUE: After the administration of intravenous contrast, axial sections acquired from the lung bases to the pubic symphysis. Coronal and sagittal reformats were performed. For radiation dose reduction, the following was used: automated exposure control, adjustment of mA and/or kV according to patient size. COMPARISON: [facility], CT, CT ABDOMEN PELVIS W CON, 04/13/2024, 22:13. FINDINGS: Image quality: Diagnostic. Lower Chest: No significant findings. ABDOMEN: Liver: No solid mass. Gallbladder: No radiopaque gallstones or wall thickening. Biliary ducts: No biliary dilation. Pancreas: No ductal dilation. Spleen: Size is within normal limits. Adrenal Glands: No adrenal nodules. Kidneys and Ureters: No hydronephrosis. No solid mass. No complex renal cystic lesion which requires follow up. Stomach and Bowel: Mild residual sigmoid colonic wall thickening. 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 Peritoneum: No abnormal intraperitoneal fluid. No free air. Ventral Wall: No significant ventral hernia. Abdominal Nodes: No retroperitoneal or mesenteric adenopathy by size criteria. Vessels: Aorta and inferior vena cava are normal in size. PELVIS: Pelvic Organs: Unremarkable. Bladder: No bladder wall thickening, accounting for underdistention. Pelvic Nodes: No enlarged lymph nodes. Miscellaneous: Small inguinal hernias containing fat. Bones: No aggressive osseous abnormality. IMPRESSION: Mild residual sigmoid colonic wall thickening, without evidence of perforation or abscess. 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 Given this complication, consider colonoscopy. Dictated by: Porfirio Bazan M.D. on 05/13/2024 at 16:20 Approved by: Porfirio Bazan M.D. on 05/13/2024 at 16:23
== END ==
LOC: CT 07:25
PROVIDERS: Referring Provider Surgery; Visit Provider Surgery
DX: K57.92 Diverticulitis of intestine, part unspecified, without perforation or abscess without bleeding (principal)
CPT/HCPCS: 74177; Q9967

== ENCOUNTER 2024-09-12 11:58 | Emergency (ER) | payer OTHER, SELFPAY ==
[2024-09-12 12:20] VITALS: BP 164/111; PULSE 83; RESP 18; TEMP 36.2; O2SAT 95; BMI 32.6
[2024-09-12] MEDS: ONDANSETRON 4 MG/2 ML INJ IV ×2 (12:46→14:06)
[2024-09-12] MEDS: KETOROLAC 30 MG/ML VIAL 15 MG IV (12:46)
[2024-09-12 12:47] LABS: Add Manual Diff / Slide Review NO; Basophils Absolute Auto 100 /uL (0-100); Basophils Percent Auto 1.1 % (0-2); Eosinophils Absolute Auto 200 /uL (0-450); Hematocrit 45.9 % (41-53); Hemoglobin 15.9 g/dL (13.5-17.5); Lymphocytes Absolute Auto 3000 /uL (1100-4500); Lymphocytes Percent Auto 25.3 % (25-40); Mean Corpuscular HGB Conc 34.6 % (30-36); Mean Corpuscular Hemoglobin 28.8 PG (26-34); Mean Corpuscular Volume 83.2 fL (80-100); Monocytes Absolute Auto 800 /uL (0-900); Monocytes Percent Auto 6.6 % (3-14); Neutrophils Absolute Auto 7700 /uL (1500-7000); Platelet Count 305 X10^3/uL (150-400); Red Blood Cell Count 5.52 X10^6/uL (4.5-5.9); Red Cell Distribution Width 13.3 % (11.6-14.8); White Blood Cell Count 11.8 X10^3/uL (4.5-11.0)
[2024-09-12 12:56] LABS: Alanine Aminotransferase 46 IU/L (<50); Albumin Globulin Ratio 1.3 (1.0-2.8); Alkaline Phosphatase 76 U/L (38-126); Aspartate Aminotransferase 40 IU/L (17-59); BUN Creatinine Ratio 18.8 (6-22); Bilirubin Total 0.9 mg/dL (0.2-1.3); Blood Urea Nitrogen 22 mg/dL (9-20); Calcium 9.9 mg/dL (8.4-10.2); Carbon Dioxide 23 mmol/L (22-32); Chloride 101 mmol/L (98-107); Estimated Glomerular Filt Rate > 60 mL/min (>60); Glucose 107 mg/dL (70-100); HEMOLYSIS < 15 (0-50); Lipase 119 U/L (23-300); Potassium 3.9 mmol/L (3.4-5.1); Sodium 137 mmol/L (137-145)
--- NOTE | 2024-09-12 13:50 | ED_ITS ---
HPI - Abdominal Pain General Chief Complaint: Abdominal Pain Stated Complaint: Lower ABD pain lvl 10 diverticulitis flare Time Seen by Provider: 09/12/24 13:46 Source: patient Mode of arrival: Ambulatory History of Present Illness HPI narrative: Mr. Rosales is a pleasant 43-year-old male with a past medical history of diverticulitisx2 who presents to the emergency department with his spouse for acute left lower quadrant abdominal pain that occurred approximately 2 hours prior to arrival. Patient states he felt normal when he woke up this morning, worked out, however when he was at work you develop sudden pain and left lower quadrant that feels similar to prior diverticulitis flares. States he is also having some dysuria. No hematuria. He is nausea but no vomiting. He has been having normal soft bowel movements, no blood or black tarry stools. Denies fevers, chills, vomiting, flank pain. Denies history of kidney stones. No prior abdominal surgeries. Related Data Home Medications Medication Instructions Recorded Confirmed omeprazole 10 mg capsule,delayed 10 mg PO DAILY 05/08/24 05/20/24 release Previous Rx's Medication Instructions Recorded amoxicillin 875 mg-potassium 1 tab PO Q12H 10 days #20 tabs 09/12/24 clavulanate 125 mg tablet hydrocodone 5 mg-acetaminophen 325 1 tab PO Q4-6H PRN pain #10 tabs 09/12/24 mg tablet ondansetron 4 mg disintegrating 4 mg PO Q8H PRN nausea and 09/12/24 tablet vomiting #14 tabs Allergies Allergy/AdvReac Type Severity Reaction Status Date / Time No Known Drug Allergies Allergy Verified 05/20/24 13:50 Review of Systems Review of Systems ROS Unobtainable: All systems reviewed & are unremarkable except as noted in HPI and below Patient History Medical History GERD (gastroesophageal reflux disease) Healthy adult Social History Smoking Status: Never smoker Smoking Status: Never smoker alcohol intake frequency: holidays/special occasions only Exam Narrative Exam Narrative: GENERAL: 43 year old patient appears stated age. Well-developed patient, in no acute distress. HEAD: Atraumatic. Normocephalic. NECK: Trachea midline. Cervical ROM intact. CARDIOVASCULAR: Regular rate and rhythm. RESPIRATORY: ?Nonlabored respirations. ?Speaking in clear, full sentences. ?Clear to auscultation. Breath sounds equal bilaterally. No wheezes, rales, or rhonchi. ? GASTROINTESTINAL: Tenderness to palpation of left lower quadrant of the abdomen and right lower quadrant of the abdomen. Abdomen soft, no rebound or guarding, no distention. Bowel sounds present. EXTREMITIES: No edema or joint tenderness. BACK: No flank tenderness. NEURO: AOx3. ?Clear speech. ?Moves all 4 extremities appropriately. Ambulatory. SKIN: No rash or erythema of visible areas Initial Vital Signs Initial Vital Signs: Vital Signs Temperature 97.2 F L 09/12/24 12:20 Pulse Rate 83 09/12/24 12:20 Respiratory Rate 18 09/12/24 12:20 Blood Pressure 164/111 H 09/12/24 12:20 Pulse Oximetry 95 09/12/24 12:20 Oxygen Delivery Method Room Air 09/12/24 12:20 Course Orders Ordered: ED Orders 09/12/24 12:25 EKG-12 Lead Stat 09/12/24 12:30 Complete Blood Count AUTO DIFF Stat Comprehensive Metabolic Panel Stat Lipase Stat 09/12/24 13:57 CT abdomen pelvis w con Stat Urine Culture Stat Urine Microscopic Stat Ondansetron HCl (Ondansetron 4 Mg/2 Ml Inj) 4 mg IV NOW PRN PRN Reason: Nausea And Vomiting Last Admin: 09/12/24 12:46 Dose: 4 mg Documented By: ASHANTI Ondansetron HCl (Ondansetron 4 Mg Odt) 4 mg PO NOW PRN PRN Reason: Nausea And Vomiting Discontinued Medications Hydrocodone Bitart/Acetaminophen (Hydrocodone/Acet 5/325 Tablet) 1 tab PO NOW ONE Stop: 09/12/24 17:54 Last Admin: 09/12/24 17:57 Dose: 1 tab Sodium Chloride (Normal Saline 0.9%) 1,000 mls @ 1,000 mls/hr IV BOLUS ONE Stop: 09/12/24 14:56 Last Infusion: 09/12/24 17:44 Dose: Infused Documented By: Admin: 09/12/24 15:42 Dose: 1,000 mls/hr Documented By: ROX Metronidazole (Flagyl) 500 mg in 100 mls @ 100 mls/hr IV NOW ONE Stop: 09/12/24 16:09 Last Infusion: 09/12/24 17:44 Dose: Infused Documented By: Admin: 09/12/24 16:29 Dose: 100 mls/hr Documented By: ROX Ceftriaxone Sodium 1,000 mg/ (Sodium Chloride) 100 mls @ 200 mls/hr IV NOW ONE Stop: 09/12/24 15:11 Last Infusion: 09/12/24 16:29 Dose: Infused Documented By: Admin: 09/12/24 15:42 Dose: 200 mls/hr Documented By: ROX Ketorolac Tromethamine (Ketorolac 30 Mg/Ml Vial) 15 mg IV NOW ONE Stop: 09/12/24 12:42 Last Admin: 09/12/24 12:46 Dose: 15 mg Documented By: ASHANTI Morphine Sulfate (Morphine 4 Mg/Ml Inj) 4 mg IV NOW ONE Stop: 09/12/24 13:58 Last Admin: 09/12/24 14:06 Dose: 4 mg Documented By: ROX Morphine Sulfate (Morphine 4 Mg/Ml Inj) 4 mg IV NOW ONE Stop: 09/12/24 15:11 Last Admin: 09/12/24 15:43 Dose: 4 mg Documented By: ROX Ondansetron HCl (Ondansetron 4 Mg/2 Ml Inj) 4 mg IV NOW ONE Stop: 09/12/24 13:58 Last Admin: 09/12/24 14:06 Dose: 4 mg Documented By: ROX Vital Signs Vital signs: Vital Signs - 8 hr 09/12/24 12:20 09/12/24 15:48 09/12/24 17:27 Temperature 97.2 F L Pulse Rate 83 77 84 Respiratory Rate 18 16 Blood Pressure 164/111 H 124/75 115/75 Pulse Oximetry 95 95 94 Oxygen Delivery Method Room Air Room Air MDM - Abdominal Pain Medical Records Attestation: I reviewed the patient's medical records. Medical records narrative: ED visit 04/13/2024 for diverticulitis. Lab Data 09/12/24 12:30 09/12/24 12:30 Labs: Lab Results 09/12/24 09/12/24 Range/Units 12:30 13:57 WBC 11.8 H (4.5-11.0) X10^3/uL RBC 5.52 (4.5-5.9) X10^6/uL Hgb 15.9 (13.5-17.5) g/dL Hct 45.9 (41-53) % MCV 83.2 (80-100) fL MCH 28.8 (26-34) PG MCHC 34.6 (30-36) % RDW 13.3 (11.6-14.8) % Plt Count 305 (150-400) X10^3/uL Neut % (Auto) 65.0 (50-75) % Lymph % (Auto) 25.3 (25-40) % Patrick % (Auto) 6.6 (3-14) % Eos % (Auto) 2.0 (2-4) % Baso % (Auto) 1.1 (0-2) % Neut # (Auto) 7700 H (9644-2169) /uL Lymph # (Auto) 3000 (1759-5642) /uL Patrick # (Auto) 800 (0-900) /uL Eos # (Auto) 200 (0-450) /uL Baso # (Auto) 100 (0-100) /uL Sodium 137 (137-145) mmol/L Potassium 3.9 (3.4-5.1) mmol/L Chloride 101 (98-107) mmol/L Carbon Dioxide 23 (22-32) mmol/L BUN 22 H (9-20) mg/dL Creatinine 1.17 (0.66-1.25) mg/dL Estimated GFR > 60 (>60) mL/min BUN/Creatinine Ratio 18.8 (6-22) Glucose 107 H (70-100) mg/dL Calcium 9.9 (8.4-10.2) mg/dL Total Bilirubin 0.9 (0.2-1.3) mg/dL AST 40 (17-59) IU/L ALT 46 (<50) IU/L Alkaline Phosphatase 76 (38-126) U/L Total Protein 9.0 H (6.3-8.2) g/dL Albumin 5.0 (3.5-5.0) g/dL Globulin 4.0 (1.7-4.1) g/dL Albumin/Globulin Ratio 1.3 (1.0-2.8) Lipase 119 (23-300) U/L Urine RBC 0-1/hpf (0-5/HPF) Urine WBC None seen (0-5/HPF) Ur Squamous Epith Cells 0-1 /hpf (0-5/HPF) Urine Bacteria None seen (None) Vol Urine Centrifuged 10ml (spun) Point of care testing: Urine Dip Bedside Urine Glucose Negative Bedside Urine Bilirubin - Negative Bedside Urine Ketone +/- 5 Urine Specific [place] 1.020 Bedside Urine Occult Blood + Bedside Urine pH 6.0 Bedside Urine Protein - Negative Bedside Urine Urobilinogen - Negative Bedside Urine Nitrite - Negative Bedside Urine Leukocytes - Negative Esterase Imaging Data CT scan - abdomen/pelvis: Radiologist's Impression: PROCEDURE: CT ABDOMEN PELVIS W CON INDICATIONS: sudden LLQ pain, dysuria, history of diverticulitis TECHNIQUE: After the administration of intravenous contrast, axial sections acquired from the lung bases to the pubic symphysis. Coronal and sagittal reformats were performed. For radiation dose reduction, the following was used: automated exposure control, adjustment of mA and/or kV according to patient size. COMPARISON: [facility], CT, CT ABDOMEN PELVIS W CON, 04/13/2024, 22:13. [facility], CT, CT ABDOMEN PELVIS W CON, 05/13/2024, 8:34. FINDINGS: Image quality: Diagnostic. Lower Chest: No significant findings. ABDOMEN: Liver: No solid mass. Diffuse fatty liver infiltration is noted. Gallbladder: No radiopaque gallstones or wall thickening. Biliary ducts: No biliary dilation. Pancreas: No ductal dilation. Spleen: The spleen is enlarged, measuring 15.8 cm AP. Adrenal Glands: No adrenal nodules. Kidneys and Ureters: No hydronephrosis. No solid mass. No complex renal cystic lesion which requires follow up. Bowel and peritoneum: There is focal moderate wall thickening seen involving the sigmoid colon. Surrounding inflammatory change can be seen. No associated abscess is seen. No free air or significant free fluid can be seen. The more proximal colon is within normal limits. No dilated loops of small bowel are seen. A normal appendix is noted. Ventral Wall: No significant ventral hernia. Abdominal Nodes: No retroperitoneal or mesenteric adenopathy by size criteria. Vessels: Aorta and inferior vena cava are normal in size. PELVIS: Pelvic Organs: Unremarkable. Bladder: No bladder wall thickening, accounting for underdistention. Pelvic Nodes: No enlarged lymph nodes. Miscellaneous: Bilateral fat containing inguinal hernias are seen, right larger than left. Bones: No aggressive osseous abnormality. IMPRESSION: Sigmoid diverticulitis, without findings of perforation or abscess. When clinically appropriate (following adequate treatment of the patient's current clinical episode) a colonoscopy is recommended for further evaluation for a potential underlying mass (if not already recently done). Additional findings: Mild fatty liver infiltration Splenomegaly Normal appendix Bilateral fat containing inguinal hernias MDM Narrative Medical decision making narrative: 43-year-old male with a past medical history of diverticulitisx2 who presents to the emergency department with his spouse for acute left lower quadrant abdominal pain that occurred approximately 2 hours prior to arrival. Differential diagnosis includes but is not limited to nephrolithiasis, ureterolithiasis, UTI, diverticulitis, perforation, appendicitis, etc. On exam patient is in no acute distress, nontoxic appearing, vital signs reveal elevated blood pressure. He was initially in the main emergency department and received Toradol which improved his pain slightly then moved to the fast track area of the emergency department for bed availability. At this time patient has tenderness to palpation of the right lower quadrant left lower quadrant of the abdomen. His pain as sudden. Baseline labs were obtained revealing WBC count of 11.8, normal hemoglobin hematocrit, BUN 22, creatinine 1.17, glucose 107, normal lipase 119. We will add on fluids, morphine, Zofran, urinalysis, CT abdomen pelvis with IV contrast. UA without signs of infection. Pain improved with ED treatment however it is starting to come back, patient requesting additional morphine which was ordered. Abdomen CT reveals sigmoid diverticulitis, without findings of perforation or abscess. Additional findings of mild fatty liver infiltration, splenomegaly, normal appendix, bilateral fat containing inguinal hernias. Discussed CT results with the patient including all incidental findings, printed report. We will treat with IV metronidazole and ceftriaxone in the emergency department, we will discharge home on Augmentin b.i.d. times 10 days in addition to short course of hydrocodone-acetaminophen and Zofran. Also recommended ibuprofen and acetaminophen for pain. Recommended starting clear liquid diet slowly increasing to soft than solids. Patient was advised to call and schedule appointment with general surgeon for further management of his diverticulitis as this is his 3rd flare. No indication for emergent surgery at this time. Advised follow up with PCP, general surgery, strict ED return precautions discussed. Patient verbalized understanding of all information is agreeable with the plan. He is stable for discharge home, tolerating p.o.. Discharge Plan Departure Patient Disposition: Home Clinical Impression: Sigmoid diverticulitis, Abdominal pain, LLQ Instructions: DI for Diverticulitis Activity Restrictions/Additional Instructions: Thank you for coming to the emergency department. Today your CT scan revealed sigmoid diverticulitis. You have been given a dose of IV antibiotics in the emergency department but you need to complete the full 10 day course of oral antibiotics. You have also been prescribed a short course of pain medication, I would like you to take ibuprofen and Tylenol with the pain medication as needed. Please start with a clear liquid diet only and slowly increase to a soft and then normal diet only as tolerated. Please call to schedule an appointment with [facility], , for further potential surgical management of your recurrent diverticulitis. Return to the emergency department if you develop fevers, worsening pain, inability to keep down your antibiotics, or any other concerns. You have been prescribed a short course of narcotic medications. These are potentially dangerous and addictive medications that should be used carefully. While on these medications you cannot drive or operate heavy machinery. Additionally, you cannot sign legal documents or perform any duties such as this. Many people get constipated on narcotic medications so it would be advisable to discuss stool softeners with the pharmacist when you picker / packer your prescription. Please understand that we cannot provide further refills of narcotics or controlled substances through the ED and your pain management will need to be through your Primary Care Provider Please follow up with your primary care doctor within the next 2-3 days for ER follow-up. (If you do not have a PCP you can call [phone]. ?to schedule an appointment with an [facility] Primary Care Provider) IF YOU DEVELOP ANY NEW OR WORSENING SYMPTOMS, RETURN TO THE ER! Please read the attached instructions, they highlight more specific treatments and interventions for you at home. Thank you for letting me participate in your care, Fe Olivia PA-C Prescriptions: New amoxicillin-pot clavulanate 875-125 mg tablet 1 tab PO Q12H 10 Days Qty: 20 0RF ondansetron 4 mg tablet,disintegrating 4 mg PO Q8H PRN (Reason: nausea and vomiting) Qty: 14 0RF hydrocodone-acetaminophen 5-325 mg tablet 1 tab PO Q4-6H PRN (Reason: pain) Qty: 10 0RF No Action omeprazole 10 mg capsule,delayed release(DR/EC) 10 mg PO DAILY Referrals: Provider,Reg SRIVASTAVA [Primary Care Provider] - Stand Alone Forms: Patient Portal/API/Survey, Work Release Note
--- NOTE | 2024-09-12 13:57 | DI.CT.S_ITS ---
PROCEDURE: CT ABDOMEN PELVIS W CON INDICATIONS: sudden LLQ pain, dysuria, history of diverticulitis TECHNIQUE: After the administration of intravenous contrast, axial sections acquired from the lung bases to the pubic symphysis. Coronal and sagittal reformats were performed. For radiation dose reduction, the following was used: automated exposure control, adjustment of mA and/or kV according to patient size. COMPARISON: [facility], CT, CT ABDOMEN PELVIS W CON, 04/13/2024, 22:13. [facility], CT, CT ABDOMEN PELVIS W CON, 05/13/2024, 8:34. FINDINGS: Image quality: Diagnostic. Lower Chest: No significant findings. ABDOMEN: Liver: No solid mass. Diffuse fatty liver infiltration is noted. Gallbladder: No radiopaque gallstones or wall thickening. Biliary ducts: No biliary dilation. Pancreas: No ductal dilation. Spleen: The spleen is enlarged, measuring 15.8 cm AP. Adrenal Glands: No adrenal nodules. Kidneys and Ureters: No hydronephrosis. No solid mass. No complex renal cystic lesion which requires follow up. Bowel and peritoneum: There is focal moderate wall thickening seen involving the sigmoid colon. Surrounding inflammatory change can be seen. No associated abscess is seen. No free air or significant free fluid can be seen. The more proximal colon is within normal limits. No dilated loops of small bowel are seen. A normal appendix is noted. Ventral Wall: No significant ventral hernia. Abdominal Nodes: No retroperitoneal or mesenteric adenopathy by size criteria. Vessels: Aorta and inferior vena cava are normal in size. PELVIS: Pelvic Organs: Unremarkable. Bladder: No bladder wall thickening, accounting for underdistention. Pelvic Nodes: No enlarged lymph nodes. Miscellaneous: Bilateral fat containing inguinal hernias are seen, right larger than left. Bones: No aggressive osseous abnormality. IMPRESSION: Sigmoid diverticulitis, without findings of perforation or abscess. When clinically appropriate (following adequate treatment of the patient's current clinical episode) a colonoscopy is recommended for further evaluation for a potential underlying mass (if not already recently done). Additional findings: Mild fatty liver infiltration Splenomegaly Normal appendix Bilateral fat containing inguinal hernias Dictated by: Ish Mcfadden M.D. on 09/12/2024 at 13:43 Approved by: Ish Mcfadden M.D. on 09/12/2024 at 13:45
[2024-09-12] MEDS: MORPHINE 4 MG/ML INJ IV ×2 (14:06→15:43)
[2024-09-12 15:02] LABS: Bacteria Urine None Seen; RBC Urine 0-1/HPF (0-5/HPF); Squamous Epithelial Cell Urine 0-1 /HPF (0-5/HPF); Urine Volume 10mL (spun); WBC Urine None Seen (0-5/HPF)
[2024-09-12] MEDS: SODIUM CHLORIDE 0.9% 1,000 ML 1000 ML IV (15:42)
[2024-09-12] MEDS: cefTRIAXone 1,000 MG in SODIUM CHLORIDE 0.9% 100 ML 200 MG IV (15:42)
[2024-09-12 15:48] VITALS: BP 124/75; PULSE 77; RESP 16; O2SAT 95
[2024-09-12] MEDS: metroNIDAZOLE 500 MG/100 ML PIGGYBACK 100 MG IV (16:29)
[2024-09-12 17:27] VITALS: BP 115/75; PULSE 84; O2SAT 94
[2024-09-12] MEDS: HYDROCODONE/ACET 5/325 TABLET 1 TAB PO (17:57)
== END 2024-09-12 18:27 | disposition home or self-care (01) ==
PROVIDERS: Emergency Medicine; Emergency Provider Physician Assistant
DX: K57.32 Diverticulitis of large intestine without perforation or abscess without bleeding (principal); R10.32 Left lower quadrant pain; R30.0 Dysuria; R11.0 Nausea
CPT/HCPCS: 36415; 74177; 80053; 81003; 81015; 83690; 85025; 87086; 96365; 96367; 96375; 96376; 99284; J0696; J1885; J2270; J2405

== ENCOUNTER 2024-10-01 06:23 | Inpatient (IN) | payer OTHER, SELFPAY ==
[2024-09-26 11:41] VITALS: BMI 31.7
[2024-10-01] VITALS (17 sets, daily range): BP systolic 85–130; BP diastolic 52–86; PULSE 83–102; RESP 12–21; TEMP 36.1–37.3; O2SAT 90–96; BMI 30.4
--- NOTE | 2024-10-01 | PATH_ITS ---
[facility] Accession Number: [id number] No. of containers..01 Tissue . 01 Material submitted: . colon - SIGMOID COLON, SEGMENTAL RESECTION . 01 Diagnosis: SIGMOID COLON, SEGMENTAL RESECTION: 1. Segment of colon with acute and chronic diverticulitis, including focal submucosal abscess formation. 2. No definite perforation seen. 3. Fourteen pericolonic lymph nodes with reactive changes and no evidence of neoplasia. [facility] 10/04/2024 1312 Local . 01 Electronically signed: . Kimani Best MD, Pathologist NPI- [id number] . 01 Gross description: . Received in formalin with two identifiers and sigmoid colon, is an unoriented segment of colon 13.2 cm in length by 2.5 cm in diameter. One end is patent and is inked blue. The opposite end is stapled and is inked black. The serosa is de santiago to erythematous with creeping fat. The lumen contains minimal fecal material. The mucosa is pink-de santiago and velvety with normal-appearing folds. The durand average 0.4 cm thick with a single diverticula grossly identified 0.7 cm in greatest dimension. An adjacent area of firm fat has possible fat necrosis adjacent to the wall. However, no distinct perforation is identified. No lesions are identified. Palpation reveals 15 de santiago lymph node candidates ranging from 0.3 to 1.0 cm in greatest dimension. Roller Bearing Inspector sections are submitted as follows: A1: Roller Bearing Inspector margins en face. A2: Diverticula. A3-A4: Area of firm fat. A5: Full thickness unremarkable sections. A6: Three intact lymph node candidates. A7: Five intact lymph node candidates. A8: Three intact lymph node candidates. A9: Four intact lymph node candidates. ([id number]) /[place] 10/04/2024 1312 Local . 01 Pathologist provided ICD-10: K57.20 . 01 CPT . 832707 Specimen Comment: A courtesy copy of this report has been sent to [phone] Performed at: [address] [id number] MD iKmani Best MD Phone: [phone]
[2024-10-01] MEDS: FAMOTIDINE 20 MG/2 ML VIAL IV (07:27)
[2024-10-01] MEDS: LACTATED RINGERS 1,000 ML 42 ML IV ×3 (07:27→10:49)
--- NOTE | 2024-10-01 07:37 | PM.PREOP ---
Pre-operative Note COVID-19 COVID-19 status: Not tested Interval Note History & Physical reviewed/Exam performed by Physician: Yes Changes to H&P: No ASA Class (for procedural sedation): II
[2024-10-01] MEDS: AMPICILLIN/SULBACTAM 3 GM 3 GM in SODIUM CHLORIDE 0.9% 100 ML IV (08:15)
--- NOTE | 2024-10-01 08:59 | SUR.OPER ---
Lithotomy on padded OR bed. Jakin Pad Positioner under torso. Head on pillow, arms padded and tucked at sides. Legs secured in padded yellow fins stirrups.
[2024-10-01] MEDS: BUPIVACAINE LIPOSOME 266 MG/20 ML VIAL INJ (09:08)
[2024-10-01] MEDS: BUPIVACAINE 0.5% W/ EPI (PF) 30 ML VIAL INJ (09:11)
[2024-10-01] MEDS: ACETAMINOPHEN IV 1,000 MG/100 ML VIAL 400 MG IV (10:50)
--- NOTE | 2024-10-01 12:27 | PM.OP.1 ---
Operative Date/Time/Diagnoses Date of procedure: 10/01/24 Time of procedure: 12:28 Pre-op diagnosis: Diverticulitis Post-op diagnosis: same Procedure & Clinicians Procedure: Low anterior resection Splenic flexure mobilization Same procedure as scheduled: Yes Surgeon: Georges Escalante Dietitian Teaching: Ted Valdivia Operative Notes Procedure in detail: The patient was given Unasyn. The patient was brought to the operating room, placed on the table in the supine position and general endotracheal anesthesia was induced. A Rios catheter was inserted and the legs were placed in stirrups. The abdomen was prepped and draped in the usual fashion and a time-out was performed. We made a 1 cm infraumbilical incision and a Garcia port was placed. The abdomen was insufflated in the usual manner. The camera was inserted no evidence of an injury was seen. Next we placed 5 mm ports in the right upper quadrant left lower quadrant and left upper quadrant and a 12 mm port in the right lower quadrant. We inspected the abdomen and found the thickened distal sigmoid colon. We then started to reflect the sigmoid colon along the white line of Toldt. The ureter was visualized and protected. We then continued the dissection to the splenic flexure and performed a complete takedown of the splenic flexure including the distal transverse colon. We continued the dissection down into the pelvis past the peritoneal reflection. There was a spot near the left pelvic sidewall where there appeared to be evidence of a prior abscess. We divided the proximal rectum with a single firing of a 60 mm blue load Endo-DARYL stapler. Next we created a 6 cm Pfannenstiel incision and brought the colon out. The specimen demonstrated thickening and induration of the distal sigmoid consistent with the diagnosis. We then created a colorectal anastomosis using the 31 mm EEA stapler. The donuts were intact and the leak test was negative for leak. There was a single serosal tear of the descending colon which was closed with a single [id number] 3-0 silk stitch using laparoscopic needle holders. Finally, Exparel was injected into the pre and post fascial planes around the Pfannenstiel incision in the right lower quadrant incision. The fascia at the Pfannenstiel incision was then closed using a running 0 PDS suture. The right lower quadrant incision and the umbilical incision were closed with multiple interrupted 0 PDS sutures. Skin incisions were closed with 4-0 Monocryl. Ted GUZMÁN provided assistance with exposure, retraction and closure of incisions. EBL: 40 mL Specimen: Sigmoid colon Post-operative Condition: stable Disposition: PACU
[2024-10-01] MEDS: HYDROMORPHONE 0.5 MG INJ IV ×2 (14:55→19:28)
[2024-10-01] MEDS: HYDROCODONE/ACET 5/325 TABLET 2 TAB PO ×2 (17:19→21:18)
[2024-10-01] MEDS: ONDANSETRON 4 MG/2 ML INJ IV (21:18)
[2024-10-02] VITALS: BP 100/62; PULSE 78; RESP 20; TEMP 37.1; O2SAT 94
[2024-10-02] MEDS: HYDROCODONE/ACET 5/325 TABLET 2 TAB PO ×5 (01:17→20:05)
[2024-10-02 04:00] VITALS: BP 104/59; PULSE 83; RESP 20; TEMP 36.7; O2SAT 94
[2024-10-02 06:36] LABS: Add Manual Diff / Slide Review NO; Basophils Absolute Auto 0 /uL (0-100); Basophils Percent Auto 0.3 % (0-2); Eosinophils Absolute Auto 0 /uL (0-450); Hematocrit 38.3 % (41-53); Hemoglobin 13.3 g/dL (13.5-17.5); Lymphocytes Absolute Auto 1900 /uL (1100-4500); Lymphocytes Percent Auto 15.7 % (25-40); Mean Corpuscular HGB Conc 34.8 % (30-36); Mean Corpuscular Hemoglobin 28.7 PG (26-34); Mean Corpuscular Volume 82.6 fL (80-100); Monocytes Absolute Auto 1300 /uL (0-900); Monocytes Percent Auto 10.3 % (3-14); Neutrophils Absolute Auto 9100 /uL (1500-7000); Neutrophils Percent Auto 73.7 % (50-75); Platelet Count 299 X10^3/uL (150-400); Red Blood Cell Count 4.63 X10^6/uL (4.5-5.9); Red Cell Distribution Width 13.1 % (11.6-14.8); White Blood Cell Count 12.4 X10^3/uL (4.5-11.0)
[2024-10-02 06:48] LABS: Blood Urea Nitrogen 12 mg/dL (9-20); Calcium 8.6 mg/dL (8.4-10.2); Carbon Dioxide 26 mmol/L (22-32); Chloride 102 mmol/L (98-107); Estimated Glomerular Filt Rate > 60 mL/min (>60); Glucose 118 mg/dL (70-100); HEMOLYSIS < 15 (0-50); Potassium 4.1 mmol/L (3.4-5.1); Sodium 135 mmol/L (137-145)
[2024-10-02] MEDS: IBUPROFEN 600 MG TABLET PO (06:51)
[2024-10-02 08:00] VITALS: BP 153/96; PULSE 96; RESP 16; TEMP 37.4; O2SAT 99
[2024-10-02] MEDS: HYDROMORPHONE 1 MG INJ IV ×5 (08:42→22:10)
--- NOTE | 2024-10-02 10:18 | PM.PN.IH.1 ---
Subjective Subjective Date Patient Seen: 10/02/24 Time Patient Seen: 10:18 Interval history: Hernesto had some pain this morning after going for a walk. He has not passed any gas yet. He has had some nausea this morning. His Rios came out this morning and he has not voided yet. Exam Vital Signs (past 8 hours): - 10/02/24 04:00 Temperature 98.1 F Pulse Rate 83 Respiratory Rate 20 Blood Pressure 104/59 L Pulse Oximetry 94 Oxygen Flow Rate 0 Oxygen Delivery Method Nasal Cannula Oxygen Flow Rate 0 Narrative Exam Narrative: Abdomen is soft, appropriately tender Objective Labs 10/02/24 06:15 10/02/24 06:15 Labs: Laboratory Results - last 24 hr 10/02/24 06:15 WBC 12.4 H RBC 4.63 Hgb 13.3 L Hct 38.3 L MCV 82.6 MCH 28.7 MCHC 34.8 RDW 13.1 Plt Count 299 Neut % (Auto) 73.7 Lymph % (Auto) 15.7 L [place] % (Auto) 10.3 Eos % (Auto) 0.0 L Baso % (Auto) 0.3 Neut # (Auto) 9100 H Lymph # (Auto) 1900 [place] # (Auto) 1300 H Eos # (Auto) 0 Baso # (Auto) 0 Sodium 135 L Potassium 4.1 Chloride 102 Carbon Dioxide 26 BUN 12 Creatinine 1.09 Estimated GFR > 60 BUN/Creatinine Ratio 11.0 Glucose 118 H Calcium 8.6 PFSH Medical History (Updated 09/27/24 @ 00:01 by ) GERD (gastroesophageal reflux disease) Healthy adult Surgical History (Updated 09/26/24 @ 12:22 by Lila Godfrey RN) Hx of sinus surgery (2001) Social History household members: spouse Smoking Status: Never smoker alcohol intake: current Assessment & Plan Assessment and plan (1) Diverticulitis: Status: Inactive Plan Continue clear liquids until nausea resolves Start Lovenox Mobilize Time-Based Coding :: [TOTAL MINUTES] spent with patient and on the chart (including review of chart, obtaining history, exam, reviewing outside data, placing orders, documenting exam and treatment plan, and counseling patient) on [DATE]. PROFEE Computer Compositor Document charge(s): No
[2024-10-02] MEDS: ENOXAPARIN 40 MG/0.4 ML SYRINGE SUBCUT (11:00)
[2024-10-02] MEDS: PANTOPRAZOLE DR 40 MG TABLET PO (11:24)
--- NOTE | 2024-10-02 11:34 | CM.DANOTE ---
B DCP assessment note pt is a 44yo M POD1 sig colon resection with Dr. Escalante for his diverticulitis. PCP CAROLA rozina Provider Payer an[employer] and self pay ECG TECHNICIAN reviewed EMR Per chart, pt is [employer] stationed in [place]. lives in with spouse. per RN, pt having some pain at his incision sight today. able to ambulate, on clears, will advance diet as able. per RN, Boris anticipates a 3 day stay. no obvious CM needs. supportive spouse at bedside. P: anticipate return home with spouse support when medically stable and OP f/u likely recommended. no anticipated CM needs. will continue to follow as needed TEMITOPE Ojeda Discharge Planning/Care Management CM Discharge Assessment Start: 10/02/24 11:33 Freq: Status: Active Protocol: Document 10/02/24 11:33 SL (Rec: 10/02/24 11:34 SL Desktop) Discharge Planning Assessment Assigned Second Floor Operator TEMITOPE Spivey DPOA/Assigned Designee Name Abigail, spouse Contact Information [phone] Advance Directives? No History Provided By Patient Prior Living Arrangements House Household Members spouse Type of transporation used prior to Drives own vehicle admit Independent with ADL's Yes Is patient alert and oriented? Yes Barriers to Discharge No Discharge Plan Home Referrals Initiated None needed Whiteboard Updated in Patient Room with No name and ext. # of Second Floor Operator Review Status In Process Please Provide Date Initial DC 10/02/24 Assessment Was Performed Next Review Type Continued Stay Review Pre-Anesthesia Assessment Start: 09/26/24 11:41 Freq: Status: Active Protocol: Document 09/26/24 11:41 LB (Rec: 09/26/24 12:22 LB [id number]) Pre-Anesthesia Assessment PAC Comment 09/26/24 Phone assessment. Patient Information Reviewed Via Phone Assessment Assessment Completed With Patient Diagnostic Results BMP/CMP,CBC,Urinalysis Comment 09/12/24 at . Primary Care Provider Charlie SRIVASTAVA Seen Specialist in Last 12 Months Yes Specialist Seen Emergency,General surgeon Primary Language Bhutanese Preferred Language Bhutanese Cold Roll Operator Required No Height 175.26 cm Weight 97.522 kg Body Mass Index (BMI) 31.7 Hearing Ability Normal Visual Impairment No Limitations Visual Assist None Barriers to Learning None Hx Anesthesia Reactions No Hx Family Anesthesia Reaction No Hx Malignant Hyperthermia No Hx Blood Transfusions No Anesthesia Review Requested No Commercial Sales Representative No alcohol intake current alcohol intake frequency a few times a month Smoking Status Never smoker Substance Use Type [#R] does not use Pain Present Pain Reported Comment Pressure above bladder. Patient is completely paralyzed or No completely immobile Mental Status Oriented to own ability Is patient on oxygen? No Does patient have VIVAR/SOB No Hx Sleep Apnea No Suspected Sleep Apnea Yes: [facility]. Currently Taking a Beta Shira No Can You Climb a Flight of Stairs Without Yes SOB Hx Chest Pain No Hx SOB No Hx Syncope or Dizziness No Anti-Coagulant Therapy No Has a Bookseamer Blindstitch No Cardiac Testing No Hx Pacemaker/ICD No Cardiac Clearance Received Not Applicable Gastrointestinal Symptoms Diarrhea,Reflux Chronic UTI No Urinary Catheter Present No Hx Urinary Self Catheterization No Diabetes No Hx Drug Resistant Organism No Presence of External or Internal Medical No Devices Have you had any close contact with No someone diagnosed with COVID-19? Are you experiencing any of these No symptoms symptoms? Received a COVID vaccine? Yes Marital Status Lives With spouse Current Living Arrangements House Number of Stairs To Enter/Railing? 2 stairs without railing to enter. Support System Spouse Patient Discharge Plan Description Return Home Additional comment Advised 3 day length of stay. Feels Safe in Current Environment Yes Do you have a plan to hurt yourself or No Plan others? Do You Have Any Spiritual Beliefs That No May Affect Your HC Choices? Do You Have Any Cultural Practices That No May Affect Your HC Choices? Emergency Contact Name Abigail Rosales - Emergency Contact Advance Directives? No PAC Instructions Assistance for 24 hours post- op,Do not shave/clip surgical site,Medications to take/avoid ,No ETOH/petroleum product on skin DOS,NPO,Pre-op antibiotic ,Pre-surgical wash,Sturdy shoes/comfortable clothes,Do not bring valuables and remove jewelry
[2024-10-02] MEDS: CALCIUM CARBONATE 500 MG TAB PO ×2 (11:35→18:31)
[2024-10-02 18:07] VITALS: BP 121/71; PULSE 66; RESP 20; TEMP 37.2; O2SAT 100
[2024-10-02 20:00] VITALS: BP 118/85; PULSE 79; RESP 20; TEMP 36.5; O2SAT 95
[2024-10-02] MEDS: FAMOTIDINE 20 MG TABLET PO (20:04)
[2024-10-02] MEDS: CALCIUM CARBONATE 500 MG TAB 1000 MG PO (20:04)
[2024-10-03] MEDS: HYDROCODONE/ACET 5/325 TABLET 2 TAB PO ×2 (00:09→08:47)
[2024-10-03] MEDS: HYDROMORPHONE 1 MG INJ IV ×3 (02:23→10:30)
[2024-10-03] MEDS: PANTOPRAZOLE DR 40 MG TABLET PO (05:47)
[2024-10-03 08:00] VITALS: BP 124/81; PULSE 69; RESP 15; TEMP 36.5; O2SAT 97
[2024-10-03] MEDS: ENOXAPARIN 40 MG/0.4 ML SYRINGE SUBCUT (08:47)
[2024-10-03] MEDS: FAMOTIDINE 20 MG TABLET PO ×2 (08:47→20:19)
[2024-10-03] MEDS: IBUPROFEN 600 MG TABLET PO ×2 (10:30→21:00)
[2024-10-03 12:00] VITALS: BP 128/76; PULSE 72; RESP 16; TEMP 36.5; O2SAT 95
--- NOTE | 2024-10-03 12:57 | PM.PN.IH.1 ---
Subjective Subjective Date Patient Seen: 10/03/24 Time Patient Seen: 12:57 Interval history: Tolerating regular diet. Passing flatus and stool. Abdominal pain is improving. Exam Vital Signs (past 8 hours): - 10/03/24 08:00 10/03/24 12:00 Temperature 97.7 F 97.7 F Pulse Rate 69 72 Respiratory Rate 15 16 Blood Pressure 124/81 128/76 Pulse Oximetry 97 95 Oxygen Flow Rate 0 0 Oxygen Delivery Method Nasal Cannula Oxygen Flow Rate 0 Narrative Exam Narrative: Well-healed incisions Objective Labs 10/02/24 06:15 10/02/24 06:15 [facility] Medical History (Updated 10/02/24 @ 10:19 by Georges Escalante MD) GERD (gastroesophageal reflux disease) Healthy adult Surgical History (Updated 09/26/24 @ 12:22 by Lila Godfrey RN) Hx of sinus surgery (2001) Social History household members: spouse alcohol intake: current Assessment & Plan Assessment and plan (1) Diverticulitis: Status: Inactive Plan Passing flatus and tolerating a regular diet He still feels somewhat weak and immobile due to incisional pain Expect discharge home tomorrow Time-Based Coding :: [TOTAL MINUTES] spent with patient and on the chart (including review of chart, obtaining history, exam, reviewing outside data, placing orders, documenting exam and treatment plan, and counseling patient) on [DATE]. PROFEE Clinical Manager Document charge(s): No
[2024-10-03] MEDS: OXYCODONE IR 10 MG TABLET PO ×3 (13:22→20:19)
[2024-10-03 16:12] LABS: Appearance Urine UA CLEAR; Bilirubin Urine UA NEGATIVE (NEGATIVE); Color Urine UA YELLOW; Glucose Urine UA NEGATIVE (Negative); Ketones Urine UA NEGATIVE (NEGATIVE); Leukocyte Esterase Urine UA NEGATIVE (NEGATIVE); Nitrite Urine UA NEGATIVE (Negative); Occult Blood Urine UA TRACE-INTACT (Negative); Protein Urine UA NEGATIVE (Negative); Urobilinogen Urine UA 0.2 E.U./dL (0.2)
[2024-10-03 17:10] LABS: Bacteria Urine None Seen; Culture Indicated Urine Cult Not Indicated; RBC Urine 0-1/HPF (0-5/HPF); Squamous Epithelial Cell Urine None Seen (0-5/HPF); Urine Volume 10mL (spun); WBC Urine 0-1/HPF (0-5/HPF)
[2024-10-03 20:00] VITALS: BP 141/91; PULSE 82; RESP 20; TEMP 36.4; O2SAT 96
[2024-10-04] MEDS: ACETAMINOPHEN 325 MG TABLET 650 MG PO (01:27)
[2024-10-04] MEDS: OXYCODONE IR 10 MG TABLET PO ×3 (01:27→10:44)
[2024-10-04] MEDS: PANTOPRAZOLE DR 40 MG TABLET PO (06:18)
[2024-10-04] MEDS: CALCIUM CARBONATE 500 MG TAB 1000 MG PO (08:18)
[2024-10-04] MEDS: ENOXAPARIN 40 MG/0.4 ML SYRINGE SUBCUT (08:18)
[2024-10-04] MEDS: FAMOTIDINE 20 MG TABLET PO (08:18)
[2024-10-04] MEDS: OXYCODONE IR 5 MG TABLET PO (09:03)
--- NOTE | 2024-10-04 12:34 | CM.DPNOTE ---
DCP Continued: Reviewed EMR and team rounds for pt?s medical status. Per rounds, pt should be discharging today as he is advancing diet and is ambulating in the halls with his spouse. No new discharge needs identified at this time. Plan: Anticipating dc home with family when medically cleared, waiting on discharge orders. CM Team will continue to follow for coordination of discharge plans. PEACE Menendez
--- NOTE | 2024-10-04 12:44 | PM.DS.IH.1 ---
History of Present Illness History of Present Illness Date Patient Seen: 10/04/24 Time Patient Seen: 12:44 Chief complaint: Lap sigmoid colon resection Narrative: Patient underwent laparoscopic sigmoid for diverticulitis Discharge Providers Provider Date of admission: 10/01/24 06:23 Discharge Date: 10/04/24 Primary care physician: Reg SRIVASTAVA Provider Discharge provider: Ryland Ndiaye MD Summary Hospital Course Discharge Diagnosis: Diverticulitis Hospital Course: Patient underwent laparoscopic sigmoid colectomy for diverticulitis. Did well as expected after surgery is appropriate for discharge on postoperative day 3 Status at Discharge Cognitive/behavioral status at discharge: at baseline, oriented Functional status at discharge: independent ambulation Overall status at discharge: patient is back to baseline Time Spent with Patient Time spent: Less than 30 minutes Exam Vital Signs (past 8 hours): Oxygen Delivery Method Nasal Cannula Oxygen Flow Rate 0 Objective Labs 10/02/24 06:15 10/02/24 06:15 Labs: Laboratory Results - last 24 hr 10/03/24 15:35 Urine Color Yellow Urine Appearance Clear Urine pH 6.0 Ur Specific [place] 1.010 Urine Protein Negative Urine Glucose (UA) Negative Urine Ketones Negative Urine Occult Blood Trace-intact Urine Nitrate Negative Urine Bilirubin Negative Urine Urobilinogen 0.2 Ur Leukocyte Esterase Negative Urine RBC 0-1/hpf Urine WBC 0-1/hpf Ur Squamous Epith Cells None seen Urine Bacteria None seen Ur Culture Indicated? Cult not indicated Vol Urine Centrifuged 10ml (spun) PFSH Medical History (Updated 10/02/24 @ 10:19 by Georges Escalante MD) GERD (gastroesophageal reflux disease) Healthy adult Surgical History (Updated 09/26/24 @ 12:22 by Lila Godfrey RN) Hx of sinus surgery (2001) Social History household members: spouse alcohol intake: current Discharge Plan Discharge Plan Patient Disposition: Home Provider Discharge Comment: No lifting greater than 20 lb for 2 weeks. Steri-Strips can get wet in the shower. Remove the Steri-Strips after 5-7 days. Discharge orders & Medications Prescriptions: New oxycodone 5 mg tablet 5 mg PO Q6H PRN (Reason: pain) Qty: 14 0RF methocarbamol 1,000 mg tablet 1,000 mg PO QID PRN (Reason: pain or spasms) Qty: 120 0RF Continued omeprazole 10 mg capsule,delayed release(DR/EC) 20 mg PO DAILY ondansetron 4 mg tablet,disintegrating 4 mg PO Q8H PRN (Reason: nausea and vomiting) Qty: 14 0RF acetaminophen [Tylenol Extra Strength] 500 mg Tablet 1,000 mg PO Q6H PRN (Reason: Headache) Discontinued neomycin 500 mg tablet 1 g PO TID Qty: 6 0RF Rx Instructions: administer at 1 PM, 2 PM, and 10 PM the day prior to surgery metronidazole 500 mg tablet 500 mg PO TID Qty: 3 0RF Rx Instructions: administer at 1 PM, 2 PM, and 10 PM the day prior to surgery Follow up/Referrals: ProviderReg [Primary Care Provider] - Diet/Activity/Treatments Diet: Regular Activity: No lifting greater than 20lbs for 2 weeks Steri strips can get wet in the shower Remove steri strip after 5-=7 days Cold/Heat Therapy: May apply heat or ice to the abdomen 20 minutes on 20 minutes off Other treatments: Take acetaminophen (Tylenol extra strength) 500 mg every 4 hours Skin/Wound/Dressing Care Skin care: Okay to shower but do not submerge Steri-Strips in the tub Dressing: Steri-Strips will dry and fall off in 1-2 weeks Visit Report/Discharge Packet Instructions: DI for Colectomy, DI for Prescription Opioid Use, [facility]: Wound Care Stand Alone Forms: Patient Portal/API, Stroke Signs & Symptoms, Surgery Discharge Discharge Data Primary Care Provider: ProviderReg PROFEE Charge Codes Discharge inpatient/observation: [id number] ([id number])
--- NOTE | 2024-10-04 13:01 | PC.NURSE ---
here to see pt. Pt med for discomfort w/ good relief. [facility] sites all CDI Orders for Discharge recieved SL D/C'd intact. Home instructions given w/ understanding. Pt escorted ambulatory by staff to waiting vehicle D/C in stable post op status
== END 2024-10-04 13:00 | disposition home or self-care (01) | DRG 331 ==
PROVIDERS: Admitting Provider Surgery; Referring Provider Surgery; Visit Provider Surgery
PROC: 0DTE0ZZ Resection of Large Intestine, Open Approach (ICD-10-PCS; principal; 2024-10-01 07:45)
DX: K57.32 Diverticulitis of large intestine without perforation or abscess without bleeding (principal); K21.9 Gastro-esophageal reflux disease without esophagitis
CPT/HCPCS: 36415; 44204; 44213; 80048; 81001; 85025; A9270; J0131; J0295; J0666; J1171; J1650; J1885; J2250; J2405; J2704; J3010

== ENCOUNTER → 2024-10-15 10:48 | Outpatient (CLI) | payer OTHER, SELFPAY ==
[2024-10-01 14:43] VITALS: BMI 30.4
[2024-10-15 11:39] LABS: Appearance Urine UA CLEAR; Bilirubin Urine UA NEGATIVE (NEGATIVE); Color Urine UA YELLOW; Glucose Urine UA NEGATIVE (Negative); Ketones Urine UA NEGATIVE (NEGATIVE); Leukocyte Esterase Urine UA NEGATIVE (NEGATIVE); Nitrite Urine UA NEGATIVE (Negative); Occult Blood Urine UA TRACE-INTACT (Negative); Protein Urine UA NEGATIVE (Negative); Specific Gravity Urine UA 1.015 (1.000-1.035); Urobilinogen Urine UA 0.2 E.U./dL (0.2); pH Urine UA 5.5 (4.5-8.0)
[2024-10-15 11:42] LABS: Add Manual Diff / Slide Review NO; Basophils Absolute Auto 100 /uL (0-100); Basophils Percent Auto 0.7 % (0-2); Eosinophils Absolute Auto 300 /uL (0-450); Hematocrit 42.5 % (41-53); Lymphocytes Absolute Auto 2300 /uL (1100-4500); Mean Corpuscular HGB Conc 35.3 % (30-36); Mean Corpuscular Volume 82.1 fL (80-100); Monocytes Absolute Auto 300 /uL (0-900); Neutrophils Absolute Auto 5400 /uL (1500-7000); Neutrophils Percent Auto 64.3 % (50-75); Platelet Count 334 X10^3/uL (150-400); Red Blood Cell Count 5.18 X10^6/uL (4.5-5.9); Red Cell Distribution Width 13.3 % (11.6-14.8); White Blood Cell Count 8.4 X10^3/uL (4.5-11.0)
[2024-10-15 11:54] LABS: Urine Volume 10mL (spun)
[2024-10-15 11:55] LABS: Bacteria Urine None Seen; Culture Indicated Urine Cult Not Indicated; RBC Urine 0-1/HPF (0-5/HPF); Squamous Epithelial Cell Urine 0-1 /HPF (0-5/HPF); WBC Urine None Seen (0-5/HPF)
[2024-10-15 12:08] LABS: BUN Creatinine Ratio 17.3 (6-22); Blood Urea Nitrogen 17 mg/dL (9-20); Calcium 9.8 mg/dL (8.4-10.2); Carbon Dioxide 25 mmol/L (22-32); Chloride 100 mmol/L (98-107); Estimated Glomerular Filt Rate > 60 mL/min (>60); Glucose 174 mg/dL (70-99); HEMOLYSIS < 15 (0-50); Potassium 4.3 mmol/L (3.4-5.1); Sodium 138 mmol/L (137-145)
== END ==
PROVIDERS: Referring Provider Surgery; Visit Provider Surgery
DX: Z09 Encounter for follow-up examination after completed treatment for conditions other than malignant neoplasm (principal)
CPT/HCPCS: 36415; 80048; 81001; 85025